=== PATIENT | male | born 1955 | race Caucasian/White ===

== ENCOUNTER 2017-09-16 08:46 | Inpatient (IN) | payer BC ==
[2017-09-16 09:15] LABS: ADD MAN DIFF? NO
[2017-09-16 09:22] LABS: ABNORMAL IP MESSAGE 1; BASOPHIL # 0.1 10^3/ul (0.0-0.1); BASOPHILS % 0.3 % (0.0-2.0); HEMATOCRIT 37.9 % (42.0-52.0); HEMOGLOBIN 12.2 g/dl (14.0-18.0); LYMPHOCYTES # 0.9 10^3/ul (0.8-2.9); LYMPHOCYTES % 3.6 % (15.0-51.0); MEAN CORPUSCULAR HEMOGLOBIN 26.9 pg (29.0-33.0); MEAN CORPUSCULAR HGB CONC 32.2 g/dl (32.0-37.0); MEAN CORPUSCULAR VOLUME 83.5 fl (82.0-101.0); MEAN PLATELET VOLUME 10.1 fl (7.4-10.4); MONOCYTE # 1.8 10^3/ul (0.3-0.9); MONOCYTES % 6.9 % (0.0-11.0); NEUTROPHIL # 22.4 10^3/ul (1.6-7.5); NEUTROPHILS % 88.1 % (39.0-77.0); PLATELET COUNT 258 10^3/UL (140-415); POSITIVE DIFF @See below; RED BLOOD COUNT 4.54 10^6/ul (4.70-6.10); RED CELL DISTRIBUTION WIDTH 14.5 % (11.5-14.5)
[2017-09-16 09:22] LABS: WHITE BLOOD COUNT 25.5 10^3/ul (4.8-10.8)
[2017-09-16] MEDS ORDERED: ONDANSETRON 4 MG INJ IV (09:30)
[2017-09-16] MEDS ORDERED: ACETAMINOPHEN 325 MG TAB PO (09:30)
[2017-09-16 09:32] LABS: INR 1.13; PROTIME 14.7 Sec (11.9-14.9); PT RATIO 1.1
[2017-09-16 09:33] LABS: PARTIAL THROMBOPLASTIN TIME 34.7 Sec (25.0-35.0)
[2017-09-16 09:41] LABS: ALANINE AMINOTRANSFERASE 28 IU/L (13-69); ALBUMIN 3.1 g/dl (3.3-4.9); ALBUMIN/GLOBULIN RATIO 0.77; ALKALINE PHOSPHATASE 80 IU/L (42-121); ANION GAP 12 (8-16); ASPARTATE AMINO TRANSFERASE 18 IU/L (15-46); BILIRUBIN,INDIRECT 0.5 mg/dl (0-1.1); BILIRUBIN,TOTAL 0.5 mg/dl (0.2-1.3); BLOOD UREA NITROGEN 16 mg/dl (7-20); CALCIUM 8.7 mg/dl (8.4-10.2); CARBON DIOXIDE 21 mmol/L (21-31); CHLORIDE 105 mmol/L (97-110); CREATININE 0.97 mg/dl (0.61-1.24); GLUCOSE 121 mg/dl (70-220); POTASSIUM 3.6 mmol/L (3.5-5.1); SODIUM 134 mmol/L (135-144); TOTAL PROTEIN 7.1 g/dl (6.1-8.1)
[2017-09-16 09:58] LABS: TROPONIN-I < 0.012 ng/ml (0.00-0.12)
[2017-09-16 11:21] LABS: LACTIC ACID 0.9 mmol/L (0.5-2.0)
[2017-09-16 11:21] LABS: ADD UMIC YES; UR AMORPHOUS CRYSTAL FEW /HPF (NONE SEEN); UR ASCORBIC ACID 20 mg/dL (NEGATIVE); UR BACTERIA FEW /HPF (NONE SEEN); UR BILIRUBIN (Dip) NEGATIVE (NEGATIVE); UR BLOOD (Dip) 1+ mg/dL (NEGATIVE); UR CLARITY SLIGHTLY CLOUDY (CLEAR); UR COLOR YELLOW (YELLOW); UR GLUCOSE (Dip) NEGATIVE (NEGATIVE); UR KETONES (Dip) NEGATIVE (NEGATIVE); UR LEUKOCYTE ESTERASE (Dip) NEGATIVE Leu/ul (NEGATIVE); UR NITRITE (Dip) NEGATIVE (NEGATIVE); UR RBC 3 /HPF (0-5); UR SPECIFIC GRAVITY (Dip) 1.013 (1.003-1.030); UR TOTAL PROTEIN (Dip) 1+ mg/dl (NEGATIVE); UR UROBILINOGEN (Dip) 2+ mg/dL (NEGATIVE); UR WBC 2 /HPF (0-5)
[2017-09-16] MEDS: morphine 4 MG/ML VIAL IV (13:06)
[2017-09-16] MEDS: ONDANSETRON 4 MG INJ IV (13:06)
[2017-09-16 13:13] LABS: ANISOCYTOSIS 2+ (0-0); BAND NEUTROPHILS #M 2.5 10^3/ul (0.0-0.6); BAND NEUTROPHILS % (M) 10 % (0-4); BURR CELLS 1+ (0-0); GIANT THROMBO% (M) 1 % (0-0); MONOCYTES % (M) 4 % (0-11); MYELOCYTES #M 0.2 10^3/ul (0.0-0.0); MYELOCYTES % (M) 1 % (0-0); PLATELET ESTIMATE NORMAL; POIKILOCYTOSIS 1+ (0-0); POLYCHROMASIA 1+ (0-0); PROMYELOCYTES #M 0.2 10^3/ul (0-0); PROMYELOCYTES % (M) 1 % (0-0); REACTIVE LYMPHOCYTES #M 0.2 10^3/ul (0.0-0.0); REACTIVE LYMPHOCYTES% (M) 1 % (0-0); SEG NEUT #M 21.5 10^3/ul (1.7-7.5); SEGMENTED NEUTROPHILS (M) % 82 % (39-77); SMUDGE%M 3 % (0-0)
[2017-09-16] MEDS: SOD CHLORIDE 0.9% 100 ML (15:23)
[2017-09-16] MEDS: IOHEXOL 300MG/ML 150 ML BTL (15:23)
[2017-09-16 16:24] LABS: LACTIC ACID 1.8 mmol/L (0.5-2.0)
[2017-09-16] MEDS ORDERED: GUAIFENESIN/DM 5ML CUP PO (17:00)
[2017-09-16] MEDS ORDERED: HYDROCODONE/APAP (5/325) TAB PO (17:00)
[2017-09-17 07:27] LABS: ADD MAN DIFF? NO
[2017-09-17] MEDS: HYDROCODONE/APAP (5/325) TAB PO ×2 (07:27→16:58)
[2017-09-17 07:35] LABS: BASOPHIL # 0.1 10^3/ul (0.0-0.1); BASOPHILS % 0.4 % (0.0-2.0); EOSINOPHILS # 0.2 10^3/ul (0.0-0.5); EOSINOPHILS % 1.2 % (0.0-7.0); HEMATOCRIT 37.1 % (42.0-52.0); HEMOGLOBIN 12.3 g/dl (14.0-18.0); LYMPHOCYTES # 1.3 10^3/ul (0.8-2.9); LYMPHOCYTES % 9.5 % (15.0-51.0); MEAN CORPUSCULAR HEMOGLOBIN 27.4 pg (29.0-33.0); MEAN CORPUSCULAR HGB CONC 33.2 g/dl (32.0-37.0); MEAN CORPUSCULAR VOLUME 82.6 fl (82.0-101.0); MEAN PLATELET VOLUME 10.1 fl (7.4-10.4); MONOCYTE # 1.2 10^3/ul (0.3-0.9); NEUTROPHIL # 10.5 10^3/ul (1.6-7.5); NEUTROPHILS % 79.1 % (39.0-77.0); PLATELET COUNT 281 10^3/UL (140-415); RED BLOOD COUNT 4.49 10^6/ul (4.70-6.10); RED CELL DISTRIBUTION WIDTH 14.7 % (11.5-14.5)
[2017-09-17 07:35] LABS: WHITE BLOOD COUNT 13.2 10^3/ul (4.8-10.8)
[2017-09-17 07:52] LABS: ANION GAP 14 (8-16); BLOOD UREA NITROGEN 17 mg/dl (7-20); CARBON DIOXIDE 23 mmol/L (21-31); CHLORIDE 105 mmol/L (97-110); CREATININE 0.88 mg/dl (0.61-1.24); GLUCOSE 109 mg/dl (70-220); POTASSIUM 3.6 mmol/L (3.5-5.1); SODIUM 138 mmol/L (135-144)
[2017-09-17] MEDS: CEFTRIAXONE 1 GM/50 ML (PMX) 50 ML IVPB (10:58)
[2017-09-17] MEDS: METOPROLOL 25 MG TAB PO ×2 (10:59→20:37)
[2017-09-17] MEDS: AZITHROMYCIN 500MG/NS (PMX) 250 ML IVPB (11:57)
[2017-09-17] MEDS: CLOTRIMAZOLE 1% 30 ML TOPICAL SOLN TOP ×2 (13:30→21:43)
[2017-09-17 15:53] LABS: IRON 41 ug/dl (35-150)
[2017-09-17 15:54] LABS: CHOL/HDL RATIO 7.4 RATIO; CHOLESTEROL 104 mg/dl (100-200); HDL CHOLESTEROL 14 mg/dl (30-78); LDL CHOLESTEROL,CALCULATED 56 mg/dl; MAGNESIUM 2.3 mg/dl (1.7-2.5); TRIGLYCERIDES 172 mg/dl (0-149)
[2017-09-17 15:54] LABS: PHOSPHORUS 2.7 mg/dl (2.5-4.9)
[2017-09-17 16:03] LABS: % IRON SATURATION 18 % SAT (22-52); TOTAL IRON BINDING CAPACITY 225 ug/dl (241-421)
[2017-09-17] MEDS: GUAIFENESIN/DM 5ML CUP PO (20:38)
[2017-09-17] MEDS: morphine 2 MG INJ IV (20:39)
[2017-09-17 21:41] LABS: HEMOGLOBIN A1C 5.9 % (0-5.9)
[2017-09-18] MEDS: morphine 2 MG INJ IV (01:41)
[2017-09-18] MEDS: GUAIFENESIN/DM 5ML CUP PO ×3 (02:46→17:54)
[2017-09-18 06:23] LABS: ADD MAN DIFF? NO
[2017-09-18 06:32] LABS: WHITE BLOOD COUNT 8.7 10^3/ul (4.8-10.8)
[2017-09-18 06:32] LABS: BASOPHIL # 0.1 10^3/ul (0.0-0.1); BASOPHILS % 0.7 % (0.0-2.0); EOSINOPHILS # 0.8 10^3/ul (0.0-0.5); EOSINOPHILS % 8.7 % (0.0-7.0); HEMATOCRIT 37.5 % (42.0-52.0); HEMOGLOBIN 12.2 g/dl (14.0-18.0); LYMPHOCYTES # 1.7 10^3/ul (0.8-2.9); LYMPHOCYTES % 19.2 % (15.0-51.0); MEAN CORPUSCULAR HEMOGLOBIN 26.9 pg (29.0-33.0); MEAN CORPUSCULAR HGB CONC 32.5 g/dl (32.0-37.0); MEAN CORPUSCULAR VOLUME 82.8 fl (82.0-101.0); MEAN PLATELET VOLUME 9.9 fl (7.4-10.4); MONOCYTE # 0.9 10^3/ul (0.3-0.9); MONOCYTES % 10.7 % (0.0-11.0); NEUTROPHIL # 5.2 10^3/ul (1.6-7.5); NEUTROPHILS % 59.9 % (39.0-77.0); PLATELET COUNT 319 10^3/UL (140-415); RED BLOOD COUNT 4.53 10^6/ul (4.70-6.10); RED CELL DISTRIBUTION WIDTH 14.6 % (11.5-14.5)
[2017-09-18 07:05] LABS: ANION GAP 12 (8-16); BLOOD UREA NITROGEN 16 mg/dl (7-20); CALCIUM 8.9 mg/dl (8.4-10.2); CARBON DIOXIDE 27 mmol/L (21-31); CHLORIDE 104 mmol/L (97-110); CREATININE 0.87 mg/dl (0.61-1.24); GLUCOSE 107 mg/dl (70-220); POTASSIUM 3.3 mmol/L (3.5-5.1); SODIUM 140 mmol/L (135-144)
[2017-09-18] MEDS: METOPROLOL 25 MG TAB PO (08:25)
[2017-09-18] MEDS: CLOTRIMAZOLE 1% 30 ML TOPICAL SOLN TOP ×2 (08:26→20:17)
[2017-09-18] MEDS ORDERED: NON-FORMULARY/PATIENT OWN MED (Losartan-Hydrochlorothiazide (Losartan-HCTZ) 1 TAB) PO (09:00)
[2017-09-18] MEDS: CEFTRIAXONE 1 GM/50 ML (PMX) 50 ML IVPB (10:08)
[2017-09-18] MEDS: HYDROCODONE/APAP (5/325) TAB PO ×2 (10:25→20:16)
[2017-09-18] MEDS: AZITHROMYCIN 500MG/NS (PMX) 250 ML IVPB (12:25)
[2017-09-18] MEDS ORDERED: hydrALAzine 20 MG INJ IV (14:00)
[2017-09-18] MEDS: POTASSIUM CHLORIDE (SR) 20 MEQ TAB PO (14:38)
[2017-09-18] MEDS ORDERED: morphine LIQ (10 MG/5 ML) CUP PO (15:00)
[2017-09-18] MEDS: IBUPROFEN 600 MG TAB PO ×2 (17:53→23:31)
[2017-09-18] MEDS: METOPROLOL 50 MG TAB PO (20:16)
[2017-09-19] MEDS: IBUPROFEN 600 MG TAB PO ×2 (05:19→12:56)
[2017-09-19 05:58] LABS: ADD MAN DIFF? NO
[2017-09-19 06:09] LABS: BASOPHIL # 0.1 10^3/ul (0.0-0.1); EOSINOPHILS # 1.6 10^3/ul (0.0-0.5); EOSINOPHILS % 14.4 % (0.0-7.0); HEMOGLOBIN 12.6 g/dl (14.0-18.0); LYMPHOCYTES # 1.8 10^3/ul (0.8-2.9); LYMPHOCYTES % 16.3 % (15.0-51.0); MEAN CORPUSCULAR HEMOGLOBIN 27.2 pg (29.0-33.0); MEAN CORPUSCULAR HGB CONC 32.3 g/dl (32.0-37.0); MEAN CORPUSCULAR VOLUME 84.1 fl (82.0-101.0); MEAN PLATELET VOLUME 10.1 fl (7.4-10.4); MONOCYTE # 1.2 10^3/ul (0.3-0.9); MONOCYTES % 10.5 % (0.0-11.0); NEUTROPHIL # 6.1 10^3/ul (1.6-7.5); NEUTROPHILS % 55.5 % (39.0-77.0); PLATELET COUNT 337 10^3/UL (140-415); RED BLOOD COUNT 4.64 10^6/ul (4.70-6.10); RED CELL DISTRIBUTION WIDTH 14.6 % (11.5-14.5)
[2017-09-19 06:56] LABS: ANION GAP 14 (8-16); BLOOD UREA NITROGEN 16 mg/dl (7-20); CALCIUM 9.4 mg/dl (8.4-10.2); CARBON DIOXIDE 26 mmol/L (21-31); CHLORIDE 107 mmol/L (97-110); CREATININE 0.89 mg/dl (0.61-1.24); GLUCOSE 97 mg/dl (70-220); POTASSIUM 3.5 mmol/L (3.5-5.1); SODIUM 143 mmol/L (135-144)
[2017-09-19] MEDS: CLOTRIMAZOLE 1% 30 ML TOPICAL SOLN TOP (08:56)
[2017-09-19] MEDS: CEFTRIAXONE 1 GM/50 ML (PMX) 50 ML IVPB (08:57)
[2017-09-19] MEDS: METOPROLOL 50 MG TAB PO (08:57)
[2017-09-19] MEDS: HYDROCODONE/APAP (5/325) TAB PO (09:05)
[2017-09-19] MEDS: GUAIFENESIN/DM 5ML CUP PO (11:23)
[2017-09-19] MEDS: AZITHROMYCIN 500MG/NS (PMX) 250 ML IVPB (12:56)
== END 2017-09-19 15:15 | disposition home or self-care (01) | DRG 871 ==
LOC: E/R 08:46 → MS2 09:28
DX: A41.9 Sepsis, unspecified organism (principal); J18.9 Pneumonia, unspecified organism; C62.90 Malignant neoplasm of unspecified testis, unspecified whether descended or undescended; I10 Essential (primary) hypertension; D63.8 Anemia in other chronic diseases classified elsewhere; N39.0 Urinary tract infection, site not specified; R65.20 Severe sepsis without septic shock; D50.9 Iron deficiency anemia, unspecified; Y95 Nosocomial condition
CPT/HCPCS: 36415; 71045; 71260; 73110-LT; 74176; 76870; 80048; 80053; 80061; 81001; 83036; 83540; 83605; 83735; 84100; 84484; 85025; 85610; 85730; 87040; 87086; 93005; 93306; 96374; 96375; 99291-25

== ENCOUNTER 2017-10-16 10:39 | Day surgery (SDC) | payer BC ==
[2017-10-16] MEDS: BUPIVACAINE 0.25% (MPF) 30 ML INJ
[~2017-10-16 10:39] MED LIST: CEFAZOLIN 1 GM INJ; ROCURONIUM 50 MG INJ
[2017-10-16 11:46] LABS: ADD MAN DIFF? NO
[2017-10-16 11:48] LABS: WHITE BLOOD COUNT 11.1 10^3/ul (4.8-10.8)
[2017-10-16 11:48] LABS: BASOPHIL # 0.1 10^3/ul (0.0-0.1); BASOPHILS % 0.8 % (0.0-2.0); EOSINOPHILS # 0.9 10^3/ul (0.0-0.5); EOSINOPHILS % 7.9 % (0.0-7.0); HEMATOCRIT 44.5 % (42.0-52.0); HEMOGLOBIN 14.4 g/dl (14.0-18.0); LYMPHOCYTES % 18.3 % (15.0-51.0); MEAN CORPUSCULAR HEMOGLOBIN 27.4 pg (29.0-33.0); MEAN CORPUSCULAR HGB CONC 32.4 g/dl (32.0-37.0); MEAN CORPUSCULAR VOLUME 84.6 fl (82.0-101.0); MEAN PLATELET VOLUME 9.9 fl (7.4-10.4); MONOCYTE # 1.1 10^3/ul (0.3-0.9); MONOCYTES % 9.8 % (0.0-11.0); NEUTROPHIL # 6.9 10^3/ul (1.6-7.5); NEUTROPHILS % 62.4 % (39.0-77.0); PLATELET COUNT 257 10^3/UL (140-415); RED BLOOD COUNT 5.26 10^6/ul (4.70-6.10); RED CELL DISTRIBUTION WIDTH 15.8 % (11.5-14.5)
[2017-10-16 12:13] LABS: ALANINE AMINOTRANSFERASE 30 IU/L (13-69); ALBUMIN 4.4 g/dl (3.3-4.9); ALBUMIN/GLOBULIN RATIO 1.07; ALKALINE PHOSPHATASE 92 IU/L (42-121); ANION GAP 15 (8-16); ASPARTATE AMINO TRANSFERASE 21 IU/L (15-46); BILIRUBIN,INDIRECT 0.1 mg/dl (0-1.1); BILIRUBIN,TOTAL 0.1 mg/dl (0.2-1.3); CARBON DIOXIDE 25 mmol/L (21-31); CHLORIDE 103 mmol/L (97-110); GLUCOSE 94 mg/dl (70-220); TOTAL PROTEIN 8.5 g/dl (6.1-8.1)
[2017-10-16 12:16] LABS: BLOOD UREA NITROGEN 18 mg/dl (7-20); CALCIUM 9.7 mg/dl (8.4-10.2); CREATININE 1.15 mg/dl (0.61-1.24); POTASSIUM 4.4 mmol/L (3.5-5.1); SODIUM 139 mmol/L (135-144)
[2017-10-16] MEDS ORDERED: ROCURONIUM 50 MG INJ (12:25)
[2017-10-16] MEDS ORDERED: PROPOFOL 20 ML (12:25)
[2017-10-16] MEDS ORDERED: MIDAZOLAM 1 MG/ML 2 ML INJ (12:25)
[2017-10-16 12:26] LABS: INR 0.98; PROTIME 13.1 Sec (11.9-14.9)
[2017-10-16 12:29] LABS: PARTIAL THROMBOPLASTIN TIME 38.4 Sec (25.0-35.0)
[2017-10-16] MEDS ORDERED: ROPIVACAINE 0.5 % 30 ML VIAL (13:42)
[2017-10-16] MEDS ORDERED: KETOROLAC 30 MG INJ (13:45)
[2017-10-16] MEDS ORDERED: DEXAMETHASONE 4 MG/ML 1 ML INJ (13:45)
[2017-10-16] MEDS ORDERED: ONDANSETRON 4 MG INJ (13:45)
[2017-10-16] MEDS ORDERED: METOCLOPRAMIDE 10 MG INJ (13:45)
[2017-10-16] MEDS ORDERED: ACETAMINOPHEN 1000MG/100ML IV 100 ML (13:49)
[2017-10-16] MEDS ORDERED: SUGAMMADEX SODIUM 200 MG/2 ML VIAL IV (13:56)
[2017-10-16] MEDS ORDERED: MEPERIDINE 100 MG INJ (13:57)
[2017-10-16] MEDS ORDERED: hydrALAzine 20 MG INJ IV (14:00)
[2017-10-16] MEDS ORDERED: MEPERIDINE 25 MG INJ IV (14:00)
[2017-10-16] MEDS ORDERED: OXYCODONE/ACETAMINOPHEN (5/325) TAB PO (14:00)
[2017-10-16] MEDS ORDERED: METOCLOPRAMIDE 10 MG INJ IV (14:00)
[2017-10-16] MEDS ORDERED: ONDANSETRON 4 MG INJ IV (14:00)
[2017-10-16] MEDS ORDERED: DIPHENHYDRAMINE 50 MG INJ IV (14:00)
[2017-10-16] MEDS ORDERED: LABETALOL HCL 20MG INJ IV (14:00)
[2017-10-16] MEDS ORDERED: EPHEDrine SULFATE 50 MG/5 ML SYG IV (14:00)
[2017-10-16] MEDS ORDERED: FENTAnyl 50 MCG/ML VIAL IV ×3 (14:00)
[2017-10-16] MEDS ORDERED: HYDROmorphONE (0.2 MG/ML) 10ML SYG IV ×3 (14:00)
[2017-10-16] MEDS ORDERED: HYDROCODONE/APAP (5/325) TAB PO (14:30)
[2017-10-16] MEDS: OXYCODONE/ACETAMINOPHEN (5/325) TAB PO (15:35)
== END 2017-10-16 16:40 | disposition home or self-care (01) ==
LOC: SDS 10:39
DX: C62.91 Malignant neoplasm of right testis, unspecified whether descended or undescended (principal); I10 Essential (primary) hypertension; Z87.891 Personal history of nicotine dependence
CPT/HCPCS: 54530; 80053; 85025; 85610; 85730; 87086; 88309; 88331; 88341; 88342

== ENCOUNTER → 2017-11-26 | Outpatient (CLI) | payer BC ==
[~2017-11-26] MED LIST changes: +ALBUTEROL 0.083% (NEB) 2.5 MG/3 ML AMP; -CEFAZOLIN 1 GM INJ; -ROCURONIUM 50 MG INJ
== END | disposition home or self-care (01) ==
LOC: PUL 11:05
DX: C62.11 Malignant neoplasm of descended right testis (principal)
CPT/HCPCS: 94060; 94726; 94729

== ENCOUNTER 2018-03-22 13:58 | Inpatient (IN) | payer BC ==
[2018-03-22] MEDS: KETOROLAC 30 MG INJ IM (15:48)
[2018-03-22 15:56] LABS: ABNORMAL IP MESSAGE 1; HEMATOCRIT 44.1 % (42.0-52.0); HEMOGLOBIN 14.3 g/dl (14.0-18.0); MEAN CORPUSCULAR HEMOGLOBIN 27.9 pg (29.0-33.0); MEAN CORPUSCULAR HGB CONC 32.4 g/dl (32.0-37.0); MEAN CORPUSCULAR VOLUME 86.1 fl (82.0-101.0); MEAN PLATELET VOLUME 9.6 fl (7.4-10.4); PLATELET COUNT 238 10^3/UL (140-415); POSITIVE DIFF @See below; RED BLOOD COUNT 5.12 10^6/ul (4.70-6.10); RED CELL DISTRIBUTION WIDTH 13.9 % (11.5-14.5)
[2018-03-22 16:08] LABS: ADD MAN DIFF? YES
[2018-03-22 16:17] LABS: ANION GAP 11 (8-16); BLOOD UREA NITROGEN 14 mg/dl (7-20); CALCIUM 9.2 mg/dl (8.4-10.2); CARBON DIOXIDE 27 mmol/L (21-31); CHLORIDE 101 mmol/L (97-110); GLUCOSE 89 mg/dl (70-220); POTASSIUM 4.1 mmol/L (3.5-5.1); SODIUM 135 mmol/L (135-144)
[2018-03-22 16:36] LABS: ANISOCYTOSIS 1+ (0-0); BAND NEUTROPHILS #M 0.7 10^3/ul (0.0-0.6); BAND NEUTROPHILS % (M) 12 % (0-4); EOSINOPHILS % (M) 1 % (0-7); GIANT THROMBO% (M) 1 % (0-0); LYMPHOCYTES #M 1.3 10^3/ul (0.8-2.9); LYMPHOCYTES % (M) 22 % (15-51); METAMYELOCYTES #M 0.2 10^3/ul (0.0-0.0); METAMYELOCYTES %M 4 % (0-0); MICROCYTOSIS 1+ (0-0); MONOCYTES % (M) 17 % (0-11); MYELOCYTES #M 0.2 10^3/ul (0.0-0.0); MYELOCYTES % (M) 4 % (0-0); PLATELET ESTIMATE NORMAL; POIKILOCYTOSIS 1+ (0-0); REACTIVE LYMPHOCYTES% (M) 1 % (0-0); SEG NEUT #M 2.3 10^3/ul (1.6-7.5); SEGMENTED NEUTROPHILS (M) % 38 % (39-77); SMUDGE%M 42 % (0-0)
[2018-03-22] MEDS: ACETAMINOPHEN 325 MG TAB PO (19:23)
[2018-03-22] MEDS: IODIXANOL LOCM 100 ML BTL (19:37)
[2018-03-22] MEDS: SOD CHLORIDE 0.9% 100 ML (19:37)
[2018-03-22 21:03] LABS: B-TYPE NATRIURETIC PEPTIDE 328 PG/ML (0-125)
[2018-03-22 21:03] LABS: TROPONIN-I < 0.010 ng/ml (0.000-0.120)
[2018-03-22] MEDS: HEPARIN 1000 UNITS/ML 10 ML INJ IV (21:48)
[2018-03-22] MEDS: HEPARIN 25000 UNITS/250 ML 250 ML IV (21:52)
[2018-03-23] MEDS ORDERED: HEPARIN 1000 UNITS/ML 10 ML INJ IV ×3 (02:00)
[2018-03-23 02:24] LABS: ABNORMAL IP MESSAGE 1; HEMOGLOBIN 13.6 g/dl (14.0-18.0); MEAN CORPUSCULAR HEMOGLOBIN 28.4 pg (29.0-33.0); MEAN CORPUSCULAR HGB CONC 33.2 g/dl (32.0-37.0); MEAN CORPUSCULAR VOLUME 85.6 fl (82.0-101.0); MEAN PLATELET VOLUME 9.9 fl (7.4-10.4); PLATELET COUNT 222 10^3/UL (140-415); POSITIVE DIFF @See below; RED BLOOD COUNT 4.79 10^6/ul (4.70-6.10); RED CELL DISTRIBUTION WIDTH 14.3 % (11.5-14.5)
[2018-03-23 02:24] LABS: WHITE BLOOD COUNT 6.1 10^3/ul (4.8-10.8)
[2018-03-23] MEDS: HYDROCODONE/APAP (5/325) TAB PO (02:29)
[2018-03-23 02:32] LABS: ADD MAN DIFF? YES
[2018-03-23 02:44] LABS: INR 1.01; PROTIME 13.4 Sec (11.9-14.9)
[2018-03-23 04:58] LABS: ANISOCYTOSIS 2+ (0-0); BAND NEUTROPHILS #M 0.4 10^3/ul (0.0-0.6); BAND NEUTROPHILS % (M) 7 % (0-4); EOSINOPHILS % (M) 1 % (0-7); LYMPHOCYTES #M 1.2 10^3/ul (0.8-2.9); LYMPHOCYTES % (M) 21 % (15-51); METAMYELOCYTES #M 0.4 10^3/ul (0.0-0.0); METAMYELOCYTES %M 8 % (0-0); MICROCYTOSIS 1+ (0-0); MONOCYTE #M 1.1 10^3/ul (0.3-0.9); MONOCYTES % (M) 19 % (0-11); MYELOCYTES #M 0.3 10^3/ul (0.0-0.0); MYELOCYTES % (M) 5 % (0-0); PLATELET ESTIMATE NORMAL; POLYCHROMASIA 3+ (0-0); REACTIVE LYMPHOCYTES% (M) 1 % (0-0); SEG NEUT #M 2.3 10^3/ul (1.6-7.5); SEGMENTED NEUTROPHILS (M) % 38 % (39-77); SMUDGE%M 5 % (0-0)
[2018-03-23 06:19] LABS: WHITE BLOOD COUNT 5.9 10^3/ul (4.8-10.8)
[2018-03-23 06:19] LABS: ABNORMAL IP MESSAGE 1; HEMOGLOBIN 13.6 g/dl (14.0-18.0); MEAN CORPUSCULAR HEMOGLOBIN 27.9 pg (29.0-33.0); MEAN CORPUSCULAR HGB CONC 33.2 g/dl (32.0-37.0); MEAN CORPUSCULAR VOLUME 84.2 fl (82.0-101.0); MEAN PLATELET VOLUME 10.3 fl (7.4-10.4); PLATELET COUNT 248 10^3/UL (140-415); POSITIVE DIFF @See below; RED BLOOD COUNT 4.87 10^6/ul (4.70-6.10); RED CELL DISTRIBUTION WIDTH 14.2 % (11.5-14.5)
[2018-03-23 06:24] LABS: ADD MAN DIFF? YES
[2018-03-23 06:44] LABS: ALANINE AMINOTRANSFERASE 15 IU/L (13-69); ALBUMIN 3.1 g/dl (3.3-4.9); ALBUMIN/GLOBULIN RATIO 0.96; ALKALINE PHOSPHATASE 48 IU/L (42-121); ANION GAP 9 (8-16); ASPARTATE AMINO TRANSFERASE 15 IU/L (15-46); BILIRUBIN,INDIRECT 0.2 mg/dl (0-1.1); BILIRUBIN,TOTAL 0.2 mg/dl (0.2-1.3); BLOOD UREA NITROGEN 15 mg/dl (7-20); CALCIUM 8.7 mg/dl (8.4-10.2); CARBON DIOXIDE 25 mmol/L (21-31); CHLORIDE 107 mmol/L (97-110); CREATININE 1.02 mg/dl (0.61-1.24); GLUCOSE 108 mg/dl (70-220); MAGNESIUM 2.1 mg/dl (1.7-2.5); PHOSPHORUS 3.5 mg/dl (2.5-4.9); POTASSIUM 3.5 mmol/L (3.5-5.1); SODIUM 137 mmol/L (135-144); TOTAL PROTEIN 6.3 g/dl (6.1-8.1)
[2018-03-23 09:05] LABS: PARTIAL THROMBOPLASTIN TIME 84.2 Sec (25.0-35.0)
[2018-03-23] MEDS: HYDROCODONE/APAP (10/325) TAB PO ×2 (09:16→18:29)
[2018-03-23] MEDS: HEPARIN 25000 UNITS/250 ML 250 ML IV (09:18)
[2018-03-23 09:37] LABS: ANISOCYTOSIS 1+ (0-0); BAND NEUTROPHILS #M 0.1 10^3/ul (0.0-0.6); BAND NEUTROPHILS % (M) 3 % (0-4); BASOPHILS % (M) 1 % (0-2); BURR CELLS 1+ (0-0); EOSINOPHILS % (M) 2 % (0-7); GIANT THROMBO% (M) 1 % (0-0); LYMPHOCYTES #M 1.5 10^3/ul (0.8-2.9); LYMPHOCYTES % (M) 27 % (15-51); METAMYELOCYTES #M 0.1 10^3/ul (0.0-0.0); METAMYELOCYTES %M 3 % (0-0); MICROCYTOSIS 1+ (0-0); MONOCYTE #M 1.1 10^3/ul (0.3-0.9); MONOCYTES % (M) 20 % (0-11); MYELOCYTES #M 0.5 10^3/ul (0.0-0.0); MYELOCYTES % (M) 9 % (0-0); PLATELET ESTIMATE NORMAL; POLYCHROMASIA 1+ (0-0); REACTIVE LYMPHOCYTES #M 0.2 10^3/ul (0.0-0.0); REACTIVE LYMPHOCYTES% (M) 5 % (0-0); SEG NEUT #M 1.8 10^3/ul (1.6-7.5); SEGMENTED NEUTROPHILS (M) % 30 % (39-77); SMUDGE%M 7 % (0-0)
[2018-03-23] MEDS: METOPROLOL 50 MG TAB PO ×2 (14:29→20:53)
[2018-03-23 14:51] LABS: ADD UMIC YES; UR ASCORBIC ACID NEGATIVE (NEGATIVE); UR BILIRUBIN (Dip) NEGATIVE (NEGATIVE); UR BLOOD (Dip) NEGATIVE (NEGATIVE); UR CLARITY CLEAR (CLEAR); UR COLOR YELLOW (YELLOW); UR GLUCOSE (Dip) NEGATIVE (NEGATIVE); UR KETONES (Dip) NEGATIVE (NEGATIVE); UR LEUKOCYTE ESTERASE (Dip) NEGATIVE Leu/ul (NEGATIVE); UR MUCUS FEW /HPF (NONE SEEN); UR NITRITE (Dip) NEGATIVE (NEGATIVE); UR RBC 0 /HPF (0-5); UR SPECIFIC GRAVITY (Dip) 1.035 (1.003-1.030); UR TOTAL PROTEIN (Dip) 1+ mg/dl (NEGATIVE); UR UROBILINOGEN (Dip) 2+ mg/dL (NEGATIVE); UR WBC 1 /HPF (0-5)
[2018-03-23 15:25] LABS: PARTIAL THROMBOPLASTIN TIME 72.2 Sec (25.0-35.0)
[2018-03-24] MEDS: HYDROCODONE/APAP (10/325) TAB PO ×4 (00:53→21:02)
[2018-03-24] MEDS: HEPARIN 25000 UNITS/250 ML 250 ML IV ×3 (03:39→15:12)
[2018-03-24 06:38] LABS: ABNORMAL IP MESSAGE 1; HEMATOCRIT 41.8 % (42.0-52.0); HEMOGLOBIN 13.5 g/dl (14.0-18.0); MEAN CORPUSCULAR HEMOGLOBIN 28.3 pg (29.0-33.0); MEAN CORPUSCULAR HGB CONC 32.3 g/dl (32.0-37.0); MEAN CORPUSCULAR VOLUME 87.6 fl (82.0-101.0); MEAN PLATELET VOLUME 10.4 fl (7.4-10.4); PLATELET COUNT 321 10^3/UL (140-415); POSITIVE DIFF @See below; RED BLOOD COUNT 4.77 10^6/ul (4.70-6.10); RED CELL DISTRIBUTION WIDTH 14.2 % (11.5-14.5)
[2018-03-24 06:38] LABS: WHITE BLOOD COUNT 10.4 10^3/ul (4.8-10.8)
[2018-03-24 06:51] LABS: ADD MAN DIFF? YES
[2018-03-24 07:05] LABS: ALANINE AMINOTRANSFERASE 20 IU/L (13-69); ALBUMIN 3.3 g/dl (3.3-4.9); ALBUMIN/GLOBULIN RATIO 1.06; ALKALINE PHOSPHATASE 51 IU/L (42-121); ANION GAP 12 (8-16); ASPARTATE AMINO TRANSFERASE 16 IU/L (15-46); BILIRUBIN,INDIRECT 0.2 mg/dl (0-1.1); BILIRUBIN,TOTAL 0.2 mg/dl (0.2-1.3); BLOOD UREA NITROGEN 12 mg/dl (7-20); CALCIUM 8.9 mg/dl (8.4-10.2); CARBON DIOXIDE 27 mmol/L (21-31); CHLORIDE 102 mmol/L (97-110); CREATININE 1.04 mg/dl (0.61-1.24); GLUCOSE 102 mg/dl (70-220); POTASSIUM 4.1 mmol/L (3.5-5.1); SODIUM 137 mmol/L (135-144); TOTAL PROTEIN 6.4 g/dl (6.1-8.1)
[2018-03-24 07:13] LABS: PARTIAL THROMBOPLASTIN TIME 66.8 Sec (25.0-35.0)
[2018-03-24] MEDS: METOPROLOL 50 MG TAB PO ×2 (08:21→21:02)
[2018-03-24 09:41] LABS: ANISOCYTOSIS 1+ (0-0); BAND NEUTROPHILS #M 1.4 10^3/ul (0.0-0.6); BAND NEUTROPHILS % (M) 14 % (0-4); GIANT THROMBO% (M) 1 % (0-0); LYMPHOCYTES #M 2.2 10^3/ul (0.8-2.9); LYMPHOCYTES % (M) 22 % (15-51); METAMYELOCYTES #M 0.5 10^3/ul (0.0-0.0); METAMYELOCYTES %M 5 % (0-0); MICROCYTOSIS 1+ (0-0); MONOCYTE #M 1.4 10^3/ul (0.3-0.9); MONOCYTES % (M) 14 % (0-11); MYELOCYTES #M 0.6 10^3/ul (0.0-0.0); MYELOCYTES % (M) 6 % (0-0); PLATELET ESTIMATE NORMAL; POLYCHROMASIA 3+ (0-0); PROMYELOCYTES #M 0.1 10^3/ul (0-0); PROMYELOCYTES % (M) 1 % (0-0); REACTIVE LYMPHOCYTES #M 0.2 10^3/ul (0.0-0.0); REACTIVE LYMPHOCYTES% (M) 2 % (0-0); SEGMENTED NEUTROPHILS (M) % 37 % (39-77); SMUDGE%M 8 % (0-0)
[2018-03-24 14:45] LABS: PARTIAL THROMBOPLASTIN TIME 51.6 Sec (25.0-35.0)
[2018-03-24] MEDS: HEPARIN 1000 UNITS/ML 10 ML INJ IV (15:01)
[2018-03-24 22:12] LABS: PARTIAL THROMBOPLASTIN TIME 93.4 Sec (25.0-35.0)
[2018-03-25 03:37] LABS: PARTIAL THROMBOPLASTIN TIME 88.4 Sec (25.0-35.0)
[2018-03-25] MEDS: HYDROCODONE/APAP (10/325) TAB PO ×3 (03:39→21:53)
[2018-03-25] MEDS: HEPARIN 25000 UNITS/250 ML 250 ML IV (03:55)
[2018-03-25] MEDS: PANTOPRAZOLE (EC) 40 MG TAB PO (07:00)
[2018-03-25] MEDS: METOPROLOL 50 MG TAB PO ×2 (08:10→20:11)
[2018-03-25 10:26] LABS: PARTIAL THROMBOPLASTIN TIME 89.3 Sec (25.0-35.0)
[2018-03-26] MEDS: HEPARIN 25000 UNITS/250 ML 250 ML IV ×2 (04:21→05:52)
[2018-03-26] MEDS: HYDROCODONE/APAP (10/325) TAB PO ×2 (04:26→22:07)
[2018-03-26] MEDS: PANTOPRAZOLE (EC) 40 MG TAB PO (06:59)
[2018-03-26 07:06] LABS: PARTIAL THROMBOPLASTIN TIME 78.2 Sec (25.0-35.0)
[2018-03-26] MEDS: METOPROLOL 50 MG TAB PO ×2 (08:23→22:09)
[2018-03-27] MEDS: HYDROCODONE/APAP (10/325) TAB PO ×3 (02:19→18:34)
[2018-03-27 03:00] LABS: PARTIAL THROMBOPLASTIN TIME 73.4 Sec (25.0-35.0)
[2018-03-27] MEDS: PANTOPRAZOLE (EC) 40 MG TAB PO (05:38)
[2018-03-27] MEDS: HEPARIN 25000 UNITS/250 ML 250 ML IV ×2 (06:17→16:13)
[2018-03-27] MEDS: METOPROLOL 50 MG TAB PO ×2 (08:20→20:59)
[2018-03-27] MEDS: BISACODYL (EC) 5 MG TAB PO (16:10)
[2018-03-27] MEDS: DOCUSATE SODIUM 100 MG CAP PO (20:58)
[2018-03-27] MEDS: ACETAMINOPHEN 325 MG TAB PO (21:01)
[2018-03-28] MEDS: LACTULOSE 30ML CUP PO ×2 (00:07→06:21)
[2018-03-28] MEDS: HYDROCODONE/APAP (10/325) TAB PO ×3 (00:08→18:18)
[2018-03-28] MEDS: PANTOPRAZOLE (EC) 40 MG TAB PO (06:20)
[2018-03-28] MEDS: HEPARIN 25000 UNITS/250 ML 250 ML IV (06:40)
[2018-03-28 07:48] LABS: PARTIAL THROMBOPLASTIN TIME 47.8 Sec (25.0-35.0)
[2018-03-28] MEDS: HEPARIN 1000 UNITS/ML 10 ML INJ IV (08:56)
[2018-03-28] MEDS: DOCUSATE SODIUM 100 MG CAP PO ×2 (09:16→20:47)
[2018-03-28] MEDS: METOPROLOL 50 MG TAB PO ×2 (09:16→20:48)
[2018-03-28] MEDS: APIXABAN 5 MG TABLET PO ×2 (11:26→20:47)
[2018-03-28 16:12] LABS: PARTIAL THROMBOPLASTIN TIME 40.6 Sec (25.0-35.0)
[2018-03-29] MEDS: HYDROCODONE/APAP (10/325) TAB PO ×3 (05:29→21:12)
[2018-03-29] MEDS: PANTOPRAZOLE (EC) 40 MG TAB PO (05:29)
[2018-03-29 09:12] LABS: ABNORMAL IP MESSAGE 1; HEMATOCRIT 44.2 % (42.0-52.0); HEMOGLOBIN 14.1 g/dl (14.0-18.0); MEAN CORPUSCULAR HEMOGLOBIN 28.2 pg (29.0-33.0); MEAN CORPUSCULAR HGB CONC 31.9 g/dl (32.0-37.0); MEAN CORPUSCULAR VOLUME 88.4 fl (82.0-101.0); MEAN PLATELET VOLUME 9.8 fl (7.4-10.4); PLATELET COUNT 428 10^3/UL (140-415); POSITIVE DIFF @See below; RED CELL DISTRIBUTION WIDTH 14.7 % (11.5-14.5)
[2018-03-29 09:12] LABS: WHITE BLOOD COUNT 20.1 10^3/ul (4.8-10.8)
[2018-03-29 09:18] LABS: ADD MAN DIFF? YES
[2018-03-29 09:34] LABS: INR 1.07; PT RATIO 1.1
[2018-03-29 09:35] LABS: PARTIAL THROMBOPLASTIN TIME 37.5 Sec (25.0-35.0)
[2018-03-29 09:46] LABS: ALANINE AMINOTRANSFERASE 24 IU/L (13-69); ALBUMIN 3.5 g/dl (3.3-4.9); ALBUMIN/GLOBULIN RATIO 0.94; ALKALINE PHOSPHATASE 54 IU/L (42-121); ANION GAP 10 (8-16); ASPARTATE AMINO TRANSFERASE 24 IU/L (15-46); BILIRUBIN,INDIRECT 0.2 mg/dl (0-1.1); BILIRUBIN,TOTAL 0.2 mg/dl (0.2-1.3); BLOOD UREA NITROGEN 15 mg/dl (7-20); CALCIUM 9.7 mg/dl (8.4-10.2); CARBON DIOXIDE 28 mmol/L (21-31); CHLORIDE 104 mmol/L (97-110); CREATININE 1.06 mg/dl (0.61-1.24); POTASSIUM 4.8 mmol/L (3.5-5.1); SODIUM 137 mmol/L (135-144); TOTAL PROTEIN 7.2 g/dl (6.1-8.1)
[2018-03-29] MEDS: APIXABAN 5 MG TABLET PO ×2 (09:54→21:11)
[2018-03-29] MEDS: METOPROLOL 50 MG TAB PO ×2 (09:55→21:15)
[2018-03-29] MEDS: DOCUSATE SODIUM 100 MG CAP PO ×2 (09:55→21:11)
[2018-03-29 09:56] LABS: GLUCOSE 98 mg/dl (70-220)
[2018-03-29 10:46] LABS: ANISOCYTOSIS 1+ (0-0); BAND NEUTROPHILS #M 1.8 10^3/ul (0.0-0.6); BAND NEUTROPHILS % (M) 9 % (0-4); LYMPHOCYTES #M 1.2 10^3/ul (0.8-2.9); LYMPHOCYTES % (M) 6 % (15-51); METAMYELOCYTES #M 0.4 10^3/ul (0.0-0.0); METAMYELOCYTES %M 2 % (0-0); MICROCYTOSIS 1+ (0-0); MONOCYTE #M 2.2 10^3/ul (0.3-0.9); MONOCYTES % (M) 11 % (0-11); MYELOCYTES #M 1.4 10^3/ul (0.0-0.0); MYELOCYTES % (M) 7 % (0-0); PLATELET ESTIMATE NORMAL; POLYCHROMASIA 1+ (0-0); REACTIVE LYMPHOCYTES #M 0.4 10^3/ul (0.0-0.0); REACTIVE LYMPHOCYTES% (M) 2 % (0-0); SEGMENTED NEUTROPHILS (M) % 63 % (39-77); SMUDGE%M 5 % (0-0)
[2018-03-29] MEDS: LACTULOSE 30ML CUP PO (11:25)
[2018-03-30] MEDS: HYDROCODONE/APAP (10/325) TAB PO ×4 (02:01→21:25)
[2018-03-30] MEDS: PANTOPRAZOLE (EC) 40 MG TAB PO (06:18)
[2018-03-30 07:50] LABS: ADD MAN DIFF? NO
[2018-03-30 08:03] LABS: WHITE BLOOD COUNT 18.9 10^3/ul (4.8-10.8)
[2018-03-30 08:03] LABS: ABNORMAL IP MESSAGE 1; BASOPHIL # 0.1 10^3/ul (0.0-0.1); BASOPHILS % 0.4 % (0.0-2.0); EOSINOPHILS # 0.1 10^3/ul (0.0-0.5); EOSINOPHILS % 0.3 % (0.0-7.0); HEMOGLOBIN 13.9 g/dl (14.0-18.0); LYMPHOCYTES # 1.8 10^3/ul (0.8-2.9); LYMPHOCYTES % 9.7 % (15.0-51.0); MEAN CORPUSCULAR HGB CONC 32.3 g/dl (32.0-37.0); MEAN CORPUSCULAR VOLUME 86.7 fl (82.0-101.0); MEAN PLATELET VOLUME 10.1 fl (7.4-10.4); MONOCYTE # 2.2 10^3/ul (0.3-0.9); MONOCYTES % 11.9 % (0.0-11.0); NEUTROPHIL # 11.5 10^3/ul (1.6-7.5); NEUTROPHILS % 60.8 % (39.0-77.0); PLATELET COUNT 406 10^3/UL (140-415); POSITIVE DIFF @See below; RED BLOOD COUNT 4.96 10^6/ul (4.70-6.10); RED CELL DISTRIBUTION WIDTH 14.8 % (11.5-14.5)
[2018-03-30 08:23] LABS: ALANINE AMINOTRANSFERASE 24 IU/L (13-69); ALBUMIN 3.7 g/dl (3.3-4.9); ALKALINE PHOSPHATASE 60 IU/L (42-121); ANION GAP 11 (8-16); ASPARTATE AMINO TRANSFERASE 22 IU/L (15-46); BILIRUBIN,INDIRECT 0.2 mg/dl (0-1.1); BILIRUBIN,TOTAL 0.2 mg/dl (0.2-1.3); BLOOD UREA NITROGEN 20 mg/dl (7-20); CALCIUM 9.6 mg/dl (8.4-10.2); CARBON DIOXIDE 27 mmol/L (21-31); CHLORIDE 102 mmol/L (97-110); GLUCOSE 95 mg/dl (70-220); POTASSIUM 4.4 mmol/L (3.5-5.1); SODIUM 136 mmol/L (135-144); TOTAL PROTEIN 7.4 g/dl (6.1-8.1)
[2018-03-30 08:30] LABS: INR 1.01; PROTIME 13.4 Sec (11.9-14.9)
[2018-03-30 08:31] LABS: PARTIAL THROMBOPLASTIN TIME 41.5 Sec (25.0-35.0)
[2018-03-30] MEDS: DOCUSATE SODIUM 100 MG CAP PO ×2 (09:15→20:39)
[2018-03-30] MEDS: METOPROLOL 50 MG TAB PO ×2 (09:15→20:40)
[2018-03-30] MEDS: APIXABAN 5 MG TABLET PO ×2 (09:16→20:40)
[2018-03-30 09:42] LABS: BAND NEUTROPHILS #M 1.8 10^3/ul (0.0-0.6); BAND NEUTROPHILS % (M) 10 % (0-4); GIANT THROMBO% (M) 1 % (0-0); LYMPHOCYTES #M 1.5 10^3/ul (0.8-2.9); LYMPHOCYTES % (M) 8 % (15-51); METAMYELOCYTES #M 0.1 10^3/ul (0.0-0.0); METAMYELOCYTES %M 1 % (0-0); MONOCYTES % (M) 11 % (0-11); MYELOCYTES #M 1.7 10^3/ul (0.0-0.0); MYELOCYTES % (M) 9 % (0-0); PLATELET ESTIMATE NORMAL; POIKILOCYTOSIS 3+ (0-0); PROMYELOCYTES #M 0.3 10^3/ul (0-0); PROMYELOCYTES % (M) 2 % (0-0); REACTIVE LYMPHOCYTES #M 0.1 10^3/ul (0.0-0.0); REACTIVE LYMPHOCYTES% (M) 1 % (0-0); SEG NEUT #M 11.3 10^3/ul (1.6-7.5); SEGMENTED NEUTROPHILS (M) % 58 % (39-77); SMUDGE%M 2 % (0-0)
[2018-03-31] MEDS: HYDROCODONE/APAP (10/325) TAB PO ×5 (02:55→19:58)
[2018-03-31] MEDS: PANTOPRAZOLE (EC) 40 MG TAB PO (06:57)
[2018-03-31] MEDS: METOPROLOL 50 MG TAB PO ×2 (09:36→20:00)
[2018-03-31] MEDS: APIXABAN 5 MG TABLET PO ×2 (09:36→20:00)
[2018-03-31] MEDS: DOCUSATE SODIUM 100 MG CAP PO ×2 (09:36→20:00)
[2018-04-01] MEDS: HYDROCODONE/APAP (10/325) TAB PO ×4 (03:36→20:23)
[2018-04-01] MEDS: PANTOPRAZOLE (EC) 40 MG TAB PO (05:40)
[2018-04-01] MEDS: METOPROLOL 50 MG TAB PO ×2 (09:55→20:22)
[2018-04-01] MEDS: DOCUSATE SODIUM 100 MG CAP PO ×2 (09:56→20:22)
[2018-04-01] MEDS: APIXABAN 5 MG TABLET PO ×2 (09:56→20:22)
[2018-04-01] MEDS ORDERED: VANCOMYCIN IV PER PHARMACY XX (12:00)
[2018-04-01] MEDS: VANCOMYCIN 2 GM in SOD CHLORIDE 0.9% 500 ML IVPB (15:26)
[2018-04-02] MEDS: VANCOMYCIN 1.25 GM in SOD CHLORIDE 0.9% 250 ML IVPB ×2 (01:10→13:48)
[2018-04-02] MEDS: HYDROCODONE/APAP (10/325) TAB PO ×5 (01:13→21:59)
[2018-04-02] MEDS: PANTOPRAZOLE (EC) 40 MG TAB PO (06:23)
[2018-04-02] MEDS: DOCUSATE SODIUM 100 MG CAP PO ×2 (08:34→21:00)
[2018-04-02] MEDS: APIXABAN 5 MG TABLET PO ×2 (08:34→21:00)
[2018-04-02] MEDS: METOPROLOL 50 MG TAB PO ×2 (08:35→21:00)
[2018-04-02 09:09] LABS: BLOOD UREA NITROGEN 18 mg/dl (7-20)
[2018-04-02 09:09] LABS: CREATININE 1.01 mg/dl (0.61-1.24)
[2018-04-02 10:07] LABS: ADD MAN DIFF? NO
[2018-04-02 10:11] LABS: WHITE BLOOD COUNT 15.9 10^3/ul (4.8-10.8)
[2018-04-02 10:11] LABS: ABNORMAL IP MESSAGE 1; BASOPHIL # 0.2 10^3/ul (0.0-0.1); BASOPHILS % 1.5 % (0.0-2.0); EOSINOPHILS % 0.2 % (0.0-7.0); HEMATOCRIT 40.9 % (42.0-52.0); HEMOGLOBIN 12.8 g/dl (14.0-18.0); LYMPHOCYTES % 12.8 % (15.0-51.0); MEAN CORPUSCULAR HEMOGLOBIN 27.4 pg (29.0-33.0); MEAN CORPUSCULAR HGB CONC 31.3 g/dl (32.0-37.0); MEAN CORPUSCULAR VOLUME 87.6 fl (82.0-101.0); MEAN PLATELET VOLUME 10.6 fl (7.4-10.4); MONOCYTE # 2.3 10^3/ul (0.3-0.9); MONOCYTES % 14.3 % (0.0-11.0); NEUTROPHIL # 9.4 10^3/ul (1.6-7.5); NEUTROPHILS % 59.1 % (39.0-77.0); PLATELET COUNT 418 10^3/UL (140-415); POSITIVE DIFF @See below; RED BLOOD COUNT 4.67 10^6/ul (4.70-6.10); RED CELL DISTRIBUTION WIDTH 14.8 % (11.5-14.5)
[2018-04-02 10:26] LABS: ANION GAP 12 (8-16); BLOOD UREA NITROGEN 18 mg/dl (7-20); CALCIUM 9.6 mg/dl (8.4-10.2); CARBON DIOXIDE 27 mmol/L (21-31); CHLORIDE 103 mmol/L (97-110); CREATININE 1.04 mg/dl (0.61-1.24); GLUCOSE 86 mg/dl (70-220); POTASSIUM 4.7 mmol/L (3.5-5.1); SODIUM 137 mmol/L (135-144)
[2018-04-02 11:13] LABS: ANISOCYTOSIS 3+ (0-0); BAND NEUTROPHILS #M 0.6 10^3/ul (0.0-0.6); BAND NEUTROPHILS % (M) 4 % (0-4); GIANT THROMBO% (M) 3 % (0-0); LYMPHOCYTES #M 1.9 10^3/ul (0.8-2.9); LYMPHOCYTES % (M) 12 % (15-51); METAMYELOCYTES #M 0.3 10^3/ul (0.0-0.0); METAMYELOCYTES %M 2 % (0-0); MICROCYTOSIS 3+ (0-0); MONOCYTES % (M) 13 % (0-11); MYELOCYTES #M 0.7 10^3/ul (0.0-0.0); MYELOCYTES % (M) 5 % (0-0); PLATELET ESTIMATE INCREASED; POLYCHROMASIA 1+ (0-0); PROMYELOCYTES #M 0.1 10^3/ul (0-0); PROMYELOCYTES % (M) 1 % (0-0); SEG NEUT #M 10.1 10^3/ul (1.6-7.5); SEGMENTED NEUTROPHILS (M) % 63 % (39-77); SMUDGE%M 3 % (0-0)
[2018-04-03] MEDS: VANCOMYCIN 1.25 GM in SOD CHLORIDE 0.9% 250 ML IVPB (02:02)
[2018-04-03] MEDS: HYDROCODONE/APAP (10/325) TAB PO ×5 (02:02→21:21)
[2018-04-03 02:11] LABS: VANCOMYCIN,TROUGH 16.8 ug/ml (10.0-20.0)
[2018-04-03] MEDS: PANTOPRAZOLE (EC) 40 MG TAB PO (05:31)
[2018-04-03] MEDS: APIXABAN 5 MG TABLET PO ×2 (09:18→21:04)
[2018-04-03] MEDS: DOCUSATE SODIUM 100 MG CAP PO ×2 (09:18→21:04)
[2018-04-03] MEDS: METOPROLOL 50 MG TAB PO ×2 (09:19→21:05)
[2018-04-03] MEDS: VANCOMYCIN 1 GM 250 ML IVPB (14:22)
[2018-04-04] MEDS: VANCOMYCIN 1 GM 250 ML IVPB (01:55)
[2018-04-04] MEDS: PANTOPRAZOLE (EC) 40 MG TAB PO (06:24)
[2018-04-04] MEDS: HYDROCODONE/APAP (10/325) TAB PO (06:26)
[2018-04-04] MEDS: DOCUSATE SODIUM 100 MG CAP PO (08:30)
[2018-04-04] MEDS: METOPROLOL 50 MG TAB PO (08:31)
[2018-04-04] MEDS: APIXABAN 5 MG TABLET PO (08:31)
[2018-04-04] MEDS ORDERED: APIXABAN 5 MG TABLET PO (21:00)
== END 2018-04-04 12:57 | disposition home or self-care (01) | DRG 176 ==
LOC: TEL 22:21 → PP2 04-02 09:29 → FTE 13:58 → TEL 03-23 00:46
DX: I26.99 Other pulmonary embolism without acute cor pulmonale (principal); R78.81 Bacteremia; I82.413 Acute embolism and thrombosis of femoral vein, bilateral; I82.433 Acute embolism and thrombosis of popliteal vein, bilateral; I10 Essential (primary) hypertension; M71.22 Synovial cyst of popliteal space [Baker], left knee; F17.200 Nicotine dependence, unspecified, uncomplicated; Z85.47 Personal history of malignant neoplasm of testis
CPT/HCPCS: 71275; 80048; 80053; 80202; 81001; 82565; 83735; 83880; 84100; 84484; 84520; 85025; 85610; 85730; 87040; 93005; 93306; 93970; 96372; 96374; 96375; 97161; 99285-25

== ENCOUNTER 2018-04-22 18:59 | Inpatient (IN) | payer BC ==
[2018-04-22] MEDS: IPRATROPIUM (NEB) 0.5 MG/2.5 ML AMP INH (19:15)
[2018-04-22] MEDS: LEVALBUTEROL (NEB) 1.25 MG/0.5 ML AMP INH (19:15)
[2018-04-22] MEDS: METHYLPREDNISOLONE 125 MG INJ IV (19:34)
[2018-04-22 19:35] LABS: ADD MAN DIFF? NO
[2018-04-22 19:41] LABS: ABNORMAL IP MESSAGE 1; BASOPHIL # 0.1 10^3/ul (0.0-0.1); BASOPHILS % 0.4 % (0.0-2.0); EOSINOPHILS # 2.6 10^3/ul (0.0-0.5); EOSINOPHILS % 18.8 % (0.0-7.0); HEMATOCRIT 42.8 % (42.0-52.0); HEMOGLOBIN 13.9 g/dl (14.0-18.0); LYMPHOCYTES # 1.9 10^3/ul (0.8-2.9); LYMPHOCYTES % 13.8 % (15.0-51.0); MEAN CORPUSCULAR HEMOGLOBIN 28.4 pg (29.0-33.0); MEAN CORPUSCULAR HGB CONC 32.5 g/dl (32.0-37.0); MEAN CORPUSCULAR VOLUME 87.3 fl (82.0-101.0); MONOCYTES % 7.3 % (0.0-11.0); NEUTROPHIL # 8.1 10^3/ul (1.6-7.5); NEUTROPHILS % 59.3 % (39.0-77.0); PLATELET COUNT 222 10^3/UL (140-415); POSITIVE DIFF @See below; RED CELL DISTRIBUTION WIDTH 14.8 % (11.5-14.5)
[2018-04-22 19:41] LABS: WHITE BLOOD COUNT 13.6 10^3/ul (4.8-10.8)
[2018-04-22] MEDS: SOD CHLORIDE 0.9% 1,000 ML IV (19:50)
[2018-04-22 19:57] LABS: LACTIC ACID 1.1 mmol/L (0.5-2.0)
[2018-04-22 19:58] LABS: ALANINE AMINOTRANSFERASE 13 IU/L (13-69); ALBUMIN 4.3 g/dl (3.3-4.9); ALKALINE PHOSPHATASE 82 IU/L (42-121); ANION GAP 15 (8-16); ASPARTATE AMINO TRANSFERASE 20 IU/L (15-46); BILIRUBIN,INDIRECT 0.2 mg/dl (0-1.1); BILIRUBIN,TOTAL 0.2 mg/dl (0.2-1.3); BLOOD UREA NITROGEN 9 mg/dl (7-20); CALCIUM 9.6 mg/dl (8.4-10.2); CARBON DIOXIDE 26 mmol/L (21-31); CHLORIDE 102 mmol/L (97-110); CREATININE 1.04 mg/dl (0.61-1.24); GLUCOSE 105 mg/dl (70-220); POTASSIUM 3.8 mmol/L (3.5-5.1); SODIUM 139 mmol/L (135-144); TOTAL PROTEIN 8.6 g/dl (6.1-8.1)
[2018-04-22 20:03] LABS: INR 1.05; PROTIME 13.8 Sec (11.9-14.9); PT RATIO 1.1
[2018-04-22 20:09] LABS: TROPONIN-I < 0.012 ng/ml (0.000-0.120)
[2018-04-22] MEDS ORDERED: ONDANSETRON 4 MG INJ IV ×2 (20:30→21:00)
[2018-04-22] MEDS ORDERED: ACETAMINOPHEN 325 MG TAB PO (20:30)
[2018-04-22] MEDS ORDERED: NACL 0.9% 3 ML SYG IV (21:00)
[2018-04-22] MEDS ORDERED: LEVALBUTEROL (NEB) 0.63 MG/3 ML AMP HHN (21:00)
[2018-04-22] MEDS ORDERED: IPRATROPIUM (NEB) 0.5 MG/2.5 ML AMP HHN (21:00)
[2018-04-22 21:43] LABS: LACTIC ACID 2.3 mmol/L (0.5-2.0)
[2018-04-22] MEDS: APIXABAN 5 MG TABLET PO (23:34)
[2018-04-22] MEDS: METOPROLOL 50 MG TAB PO (23:59)
[2018-04-23] MEDS: SOD CHLORIDE 0.9% 500 ML IV (01:35)
[2018-04-23 03:07] LABS: LACTIC ACID 1.7 mmol/L (0.5-2.0)
[2018-04-23 05:34] LABS: ADD MAN DIFF? NO
[2018-04-23 05:42] LABS: ABNORMAL IP MESSAGE 1; BASOPHILS % 0.5 % (0.0-2.0); EOSINOPHILS % 0.2 % (0.0-7.0); HEMATOCRIT 39.9 % (42.0-52.0); HEMOGLOBIN 12.8 g/dl (14.0-18.0); LYMPHOCYTES # 0.6 10^3/ul (0.8-2.9); LYMPHOCYTES % 13.5 % (15.0-51.0); MEAN CORPUSCULAR HEMOGLOBIN 28.1 pg (29.0-33.0); MEAN CORPUSCULAR HGB CONC 32.1 g/dl (32.0-37.0); MEAN CORPUSCULAR VOLUME 87.7 fl (82.0-101.0); MEAN PLATELET VOLUME 10.1 fl (7.4-10.4); MONOCYTE # 0.2 10^3/ul (0.3-0.9); MONOCYTES % 3.7 % (0.0-11.0); NEUTROPHIL # 3.5 10^3/ul (1.6-7.5); NEUTROPHILS % 81.2 % (39.0-77.0); PLATELET COUNT 205 10^3/UL (140-415); POSITIVE DIFF @See below; RED BLOOD COUNT 4.55 10^6/ul (4.70-6.10); RED CELL DISTRIBUTION WIDTH 15.1 % (11.5-14.5)
[2018-04-23 05:42] LABS: WHITE BLOOD COUNT 4.4 10^3/ul (4.8-10.8)
[2018-04-23 05:59] LABS: ALANINE AMINOTRANSFERASE 15 IU/L (13-69); ALBUMIN 3.6 g/dl (3.3-4.9); ALBUMIN/GLOBULIN RATIO 0.92; ALKALINE PHOSPHATASE 73 IU/L (42-121); ANION GAP 11 (8-16); ASPARTATE AMINO TRANSFERASE 15 IU/L (15-46); BILIRUBIN,INDIRECT 0.2 mg/dl (0-1.1); BILIRUBIN,TOTAL 0.2 mg/dl (0.2-1.3); BLOOD UREA NITROGEN 11 mg/dl (7-20); CALCIUM 9.4 mg/dl (8.4-10.2); CARBON DIOXIDE 27 mmol/L (21-31); CHLORIDE 108 mmol/L (97-110); CREATININE 0.98 mg/dl (0.61-1.24); GLUCOSE 137 mg/dl (70-220); MAGNESIUM 2.1 mg/dl (1.7-2.5); SODIUM 142 mmol/L (135-144); TOTAL PROTEIN 7.5 g/dl (6.1-8.1)
[2018-04-23 06:06] LABS: LACTIC ACID 1.1 mmol/L (0.5-2.0)
[2018-04-23] MEDS: APIXABAN 5 MG TABLET PO ×2 (08:53→21:17)
[2018-04-23] MEDS: METHYLPREDNISOLONE 125 MG INJ IV (08:53)
[2018-04-23] MEDS: METOPROLOL 50 MG TAB PO ×2 (08:54→21:16)
[2018-04-23] MEDS: FUROSEMIDE 40 MG TAB PO (08:54)
[2018-04-23] MEDS: LEVALBUTEROL (NEB) 0.63 MG/3 ML AMP HHN ×2 (13:47→20:26)
[2018-04-23] MEDS: FLUTICASONE/VILANTEROL 100-25 INH (16:10)
[2018-04-23] MEDS ORDERED: VANCOMYCIN IV PER PHARMACY XX (20:30)
[2018-04-23] MEDS: HYDROCODONE/APAP (5/325) TAB PO (21:15)
[2018-04-23] MEDS: DIPHENHYDRAMINE 25 MG CAP PO (21:22)
[2018-04-23] MEDS: VANCOMYCIN 2 GM in SOD CHLORIDE 0.9% 500 ML IVPB (23:13)
[2018-04-24] MEDS: LEVALBUTEROL (NEB) 0.63 MG/3 ML AMP HHN ×3 (08:19→20:52)
[2018-04-24] MEDS: METHYLPREDNISOLONE 125 MG INJ IV (08:46)
[2018-04-24] MEDS: APIXABAN 5 MG TABLET PO ×2 (08:46→20:41)
[2018-04-24] MEDS: ACETAMINOPHEN 325 MG TAB PO (08:46)
[2018-04-24] MEDS: FLUTICASONE/VILANTEROL 100-25 INH (08:47)
[2018-04-24] MEDS: METOPROLOL 50 MG TAB PO ×2 (08:47→20:41)
[2018-04-24] MEDS: FUROSEMIDE 40 MG TAB PO (08:47)
[2018-04-24] MEDS: VANCOMYCIN 1.25 GM in SOD CHLORIDE 0.9% 250 ML IVPB (10:28)
[2018-04-24] MEDS: PIPER-TAZO 3.375 GM IV (PMX) 100 ML IVPB ×2 (14:14→22:03)
[2018-04-24] MEDS: HYDROCODONE/APAP (5/325) TAB PO (20:40)
[2018-04-24] MEDS: DIPHENHYDRAMINE 25 MG CAP PO (22:53)
[2018-04-25] MEDS: PIPER-TAZO 3.375 GM IV (PMX) 100 ML IVPB ×3 (06:03→21:31)
[2018-04-25 06:14] LABS: ADD MAN DIFF? NO
[2018-04-25 06:30] LABS: WHITE BLOOD COUNT 12.2 10^3/ul (4.8-10.8)
[2018-04-25 06:30] LABS: HEMATOCRIT 39.7 % (42.0-52.0); MEAN CORPUSCULAR HEMOGLOBIN 29.2 pg (29.0-33.0); MEAN CORPUSCULAR HGB CONC 32.7 g/dl (32.0-37.0); MEAN CORPUSCULAR VOLUME 89.2 fl (82.0-101.0); RED BLOOD COUNT 4.45 10^6/ul (4.70-6.10); RED CELL DISTRIBUTION WIDTH 15.1 % (11.5-14.5)
[2018-04-25 06:31] LABS: BASOPHIL # 0.1 10^3/ul (0.0-0.1); BASOPHILS % 0.6 % (0.0-2.0); EOSINOPHILS # 0.1 10^3/ul (0.0-0.5); EOSINOPHILS % 0.7 % (0.0-7.0); LYMPHOCYTES # 2.4 10^3/ul (0.8-2.9); LYMPHOCYTES % 19.6 % (15.0-51.0); MEAN PLATELET VOLUME 10.1 fl (7.4-10.4); MONOCYTE # 1.1 10^3/ul (0.3-0.9); MONOCYTES % 8.8 % (0.0-11.0); NEUTROPHIL # 8.5 10^3/ul (1.6-7.5); NEUTROPHILS % 69.7 % (39.0-77.0); PLATELET COUNT 211 10^3/UL (140-415)
[2018-04-25 06:52] LABS: ANION GAP 15 (8-16); BLOOD UREA NITROGEN 20 mg/dl (7-20); CALCIUM 9.2 mg/dl (8.4-10.2); CARBON DIOXIDE 27 mmol/L (21-31); CHLORIDE 107 mmol/L (97-110); CREATININE 0.97 mg/dl (0.61-1.24); GLUCOSE 98 mg/dl (70-220); POTASSIUM 3.5 mmol/L (3.5-5.1); SODIUM 145 mmol/L (135-144)
[2018-04-25] MEDS: LEVALBUTEROL (NEB) 0.63 MG/3 ML AMP HHN ×3 (08:00→20:02)
[2018-04-25] MEDS: METHYLPREDNISOLONE 125 MG INJ IV (09:03)
[2018-04-25] MEDS: FLUTICASONE/VILANTEROL 100-25 INH (09:03)
[2018-04-25] MEDS: METOPROLOL 50 MG TAB PO ×2 (09:03→20:34)
[2018-04-25] MEDS: APIXABAN 5 MG TABLET PO ×2 (09:03→20:33)
[2018-04-25] MEDS: FUROSEMIDE 40 MG TAB PO (09:04)
[2018-04-26] MEDS: PIPER-TAZO 3.375 GM IV (PMX) 100 ML IVPB (05:43)
[2018-04-26] MEDS: APIXABAN 5 MG TABLET PO (07:54)
[2018-04-26] MEDS: FLUTICASONE/VILANTEROL 100-25 INH (07:54)
[2018-04-26] MEDS: METOPROLOL 50 MG TAB PO (07:55)
[2018-04-26] MEDS: METHYLPREDNISOLONE 125 MG INJ IV (07:55)
[2018-04-26] MEDS: FUROSEMIDE 40 MG TAB PO (07:55)
[2018-04-26] MEDS: LEVALBUTEROL (NEB) 0.63 MG/3 ML AMP HHN (08:38)
== END 2018-04-26 14:06 | disposition home or self-care (01) | DRG 202 ==
LOC: E/R 18:59 → 6WM 20:24
DX: J45.901 Unspecified asthma with (acute) exacerbation (principal); I26.99 Other pulmonary embolism without acute cor pulmonale; R65.10 Systemic inflammatory response syndrome (SIRS) of non-infectious origin without acute organ dysfunction; I82.411 Acute embolism and thrombosis of right femoral vein; I82.431 Acute embolism and thrombosis of right popliteal vein; I10 Essential (primary) hypertension; Z85.47 Personal history of malignant neoplasm of testis; F17.200 Nicotine dependence, unspecified, uncomplicated; Z79.02 Long term (current) use of antithrombotics/antiplatelets
CPT/HCPCS: 36415; 71045; 80048; 80053; 83605; 83735; 84484; 85025; 85610; 85730; 87040; 93005; 93970; 94640; 94644; 94664; 99285-25

== ENCOUNTER 2018-07-18 13:46 | Inpatient (IN) | payer BC ==
[2018-07-18] MEDS: MAGNESIUM SULFATE 2 GM/50 ML 50 ML IVPB (14:41)
[2018-07-18 15:25] LABS: HEMATOCRIT 52.4 % (42.0-52.0); HEMOGLOBIN 16.8 g/dl (14.0-18.0); MEAN CORPUSCULAR HGB CONC 32.1 g/dl (32.0-37.0); MEAN CORPUSCULAR VOLUME 90.5 fl (82.0-101.0); MEAN PLATELET VOLUME 9.7 fl (7.4-10.4); PLATELET COUNT 245 10^3/UL (140-415); RED BLOOD COUNT 5.79 10^6/ul (4.70-6.10); RED CELL DISTRIBUTION WIDTH 13.2 % (11.5-14.5)
[2018-07-18 15:25] LABS: WHITE BLOOD COUNT 11.9 10^3/ul (4.8-10.8)
[2018-07-18 15:33] LABS: ADD MAN DIFF? YES
[2018-07-18] MEDS: METHYLPREDNISOLONE 125 MG INJ IV (15:39)
[2018-07-18 15:42] LABS: ALANINE AMINOTRANSFERASE 10 IU/L (13-69); ALBUMIN 4.3 g/dl (3.3-4.9); ALBUMIN/GLOBULIN RATIO 1.04; ALKALINE PHOSPHATASE 86 IU/L (42-121); ANION GAP 9 (5-13); ASPARTATE AMINO TRANSFERASE 21 IU/L (15-46); BILIRUBIN,INDIRECT 0.3 mg/dl (0-1.1); BILIRUBIN,TOTAL 0.3 mg/dl (0.2-1.3); BLOOD UREA NITROGEN 13 mg/dl (7-20); CALCIUM 9.5 mg/dl (8.4-10.2); CARBON DIOXIDE 25 mmol/L (21-31); CHLORIDE 107 mmol/L (97-110); CREATININE 1.02 mg/dl (0.61-1.24); Estimated GFR > 60 mL/min (>60); GLUCOSE 91 mg/dl (70-220); POTASSIUM 4.4 mmol/L (3.5-5.1); SODIUM 141 mmol/L (135-144); TOTAL PROTEIN 8.4 g/dl (6.1-8.1)
[2018-07-18 15:45] LABS: INR 0.83; PROTIME 11.5 Sec (11.9-14.9); PT RATIO 0.9
[2018-07-18] MEDS: IPRATROPIUM (NEB) 0.5 MG/2.5 ML AMP INH (15:45)
[2018-07-18] MEDS: ALBUTEROL 0.5% (NEB) 2.5 MG/0.5 ML AMP INH (15:45)
[2018-07-18 15:46] LABS: PARTIAL THROMBOPLASTIN TIME 33.3 Sec (23.0-35.0)
[2018-07-18 15:56] LABS: TROPONIN-I < 0.012 ng/ml (0.000-0.120)
[2018-07-18 15:56] LABS: B-TYPE NATRIURETIC PEPTIDE 306 PG/ML (0-125)
[2018-07-18] MEDS: AZITHROMYCIN 500MG/250 ML IVPB IV (16:06)
[2018-07-18 16:10] LABS: BAND NEUTROPHILS #M 0.1 10^3/ul (0.0-0.6); BAND NEUTROPHILS % (M) 1 % (0-4); EOSINOPHILS % (M) 16 % (0-7); LYMPHOCYTES #M 1.9 10^3/ul (0.8-2.9); LYMPHOCYTES % (M) 16 % (15-51); MONOCYTE #M 0.9 10^3/ul (0.3-0.9); MONOCYTES % (M) 8 % (0-11); PLATELET ESTIMATE NORMAL; SEGMENTED NEUTROPHILS (M) % 59 % (39-77); SMUDGE%M 13 % (0-0)
[2018-07-18] MEDS ORDERED: LEVALBUTEROL (NEB) 1.25 MG/0.5 ML AMP HHN (18:30)
[2018-07-18] MEDS: LEVALBUTEROL (NEB) 1.25 MG/0.5 ML AMP HHN (19:10)
[2018-07-18] MEDS: IPRATROPIUM (NEB) 0.5 MG/2.5 ML AMP HHN (19:10)
[2018-07-18] MEDS: BUDESONIDE (NEB) 0.5MG/2ML AMP HHN (19:15)
[2018-07-18] MEDS: METOPROLOL 50 MG TAB PO (21:31)
[2018-07-18] MEDS: APIXABAN 5 MG TABLET PO (21:31)
[2018-07-18] MEDS: ACETAMINOPHEN 325 MG TAB PO (21:31)
[2018-07-19] MEDS: LEVALBUTEROL (NEB) 1.25 MG/0.5 ML AMP HHN ×4 (01:04→19:38)
[2018-07-19] MEDS: ACETAMINOPHEN 325 MG TAB PO (05:50)
[2018-07-19] MEDS: GUAIFENESIN 20 MG/ML 5ML CUP PO ×3 (05:51→20:05)
[2018-07-19] MEDS ORDERED: LEVALBUTEROL (HFA) 15 GM INHALER INH (07:30)
[2018-07-19 07:42] LABS: ADD MAN DIFF? NO
[2018-07-19 07:49] LABS: WHITE BLOOD COUNT 15.1 10^3/ul (4.8-10.8)
[2018-07-19 07:49] LABS: BASOPHILS % 0.2 % (0.0-2.0); HEMATOCRIT 49.7 % (42.0-52.0); HEMOGLOBIN 15.9 g/dl (14.0-18.0); LYMPHOCYTES # 1.4 10^3/ul (0.8-2.9); LYMPHOCYTES % 8.9 % (15.0-51.0); MEAN CORPUSCULAR HEMOGLOBIN 28.8 pg (29.0-33.0); MONOCYTE # 0.6 10^3/ul (0.3-0.9); NEUTROPHIL # 13.1 10^3/ul (1.6-7.5); NEUTROPHILS % 86.5 % (39.0-77.0); PLATELET COUNT 282 10^3/UL (140-415); RED BLOOD COUNT 5.52 10^6/ul (4.70-6.10); RED CELL DISTRIBUTION WIDTH 12.9 % (11.5-14.5)
[2018-07-19] MEDS: IPRATROPIUM (NEB) 0.5 MG/2.5 ML AMP HHN ×3 (08:00→19:38)
[2018-07-19 08:15] LABS: ALANINE AMINOTRANSFERASE 13 IU/L (13-69); ALBUMIN/GLOBULIN RATIO 1.05; ALKALINE PHOSPHATASE 77 IU/L (42-121); ANION GAP 11 (5-13); ASPARTATE AMINO TRANSFERASE 17 IU/L (15-46); BILIRUBIN,INDIRECT 0.3 mg/dl (0-1.1); BILIRUBIN,TOTAL 0.3 mg/dl (0.2-1.3); BLOOD UREA NITROGEN 15 mg/dl (7-20); CALCIUM 9.4 mg/dl (8.4-10.2); CARBON DIOXIDE 24 mmol/L (21-31); CHLORIDE 108 mmol/L (97-110); Estimated GFR > 60 mL/min (>60); GLUCOSE 124 mg/dl (70-220); POTASSIUM 4.4 mmol/L (3.5-5.1); SODIUM 143 mmol/L (135-144); TOTAL PROTEIN 7.8 g/dl (6.1-8.1)
[2018-07-19] MEDS: APIXABAN 5 MG TABLET PO ×2 (09:26→20:05)
[2018-07-19] MEDS: METHYLPREDNISOLONE 125 MG INJ IV (09:26)
[2018-07-19] MEDS: FLUTICASONE/VILANTEROL 100-25 INH (09:27)
[2018-07-19] MEDS: BUDESONIDE (NEB) 0.5MG/2ML AMP HHN (11:03)
[2018-07-19] MEDS ORDERED: FLUTICASONE/VILANTEROL 100-25 INH (12:00)
[2018-07-19] MEDS: IOHEXOL 100 ML (12:13)
[2018-07-19] MEDS: SOD CHLORIDE 0.9% 100 ML (12:13)
[2018-07-19] MEDS: HYDROCODONE/APAP (10/325) TAB PO ×2 (12:56→17:31)
[2018-07-19] MEDS: TIOTROPIUM 18 MCG CAPSULE INHA DEV INH (14:20)
[2018-07-19] MEDS: DOXAZOSIN 1 MG TAB PO (14:53)
[2018-07-19] MEDS: ALPRAZOLAM 1 MG TAB PO (20:05)
[2018-07-19] MEDS: MONTELUKAST 10 MG TAB PO (20:05)
[2018-07-19] MEDS: DOXAZOSIN 2 MG TAB PO (20:06)
[2018-07-19] MEDS: LABETALOL 200 MG TAB PO (23:29)
[2018-07-20] MEDS: LEVALBUTEROL (NEB) 1.25 MG/0.5 ML AMP HHN ×3 (01:11→14:27)
[2018-07-20] MEDS: IPRATROPIUM (NEB) 0.5 MG/2.5 ML AMP HHN (01:11)
[2018-07-20] MEDS: FLUTICASONE/VILANTEROL 100-25 INH (08:31)
[2018-07-20] MEDS: TIOTROPIUM 18 MCG CAPSULE INHA DEV INH (08:31)
[2018-07-20] MEDS: APIXABAN 5 MG TABLET PO (08:32)
[2018-07-20] MEDS: METHYLPREDNISOLONE 125 MG INJ IV (08:32)
[2018-07-20] MEDS: GUAIFENESIN 20 MG/ML 5ML CUP PO ×2 (11:10→16:12)
[2018-07-20] MEDS: NIFEdipine (XL) 30 MG TAB PO (11:10)
[2018-07-20] MEDS: HYDROCODONE/APAP (10/325) TAB PO (16:08)
== END 2018-07-20 18:00 | disposition home or self-care (01) | DRG 190 ==
LOC: E/R 13:46 → 2NE 18:22
DX: J44.1 Chronic obstructive pulmonary disease with (acute) exacerbation (principal); I26.99 Other pulmonary embolism without acute cor pulmonale; I16.1 Hypertensive emergency; I10 Essential (primary) hypertension; I16.0 Hypertensive urgency; D72.829 Elevated white blood cell count, unspecified; Z79.01 Long term (current) use of anticoagulants; Z87.891 Personal history of nicotine dependence; Z85.47 Personal history of malignant neoplasm of testis; Z86.718 Personal history of other venous thrombosis and embolism; T38.0X5A Adverse effect of glucocorticoids and synthetic analogues, initial encounter
CPT/HCPCS: 71275; 80053; 83880; 84484; 85025; 85610; 85730; 87400; 90686; 94640; 94644; 94664; 96374; 96375; 99285-25

== ENCOUNTER 2018-08-26 18:38 | Inpatient (IN) | payer BC ==
[2018-08-26] MEDS: IPRATROPIUM (NEB) 0.5 MG/2.5 ML AMP INH (20:06)
[2018-08-26] MEDS: ALBUTEROL 0.083% (NEB) 2.5 MG/3 ML AMP HHN (20:06)
[2018-08-26 20:11] LABS: ADD MAN DIFF? NO
[2018-08-26 20:19] LABS: WHITE BLOOD COUNT 14.1 10^3/ul (4.8-10.8)
[2018-08-26 20:20] LABS: BASOPHIL # 0.1 10^3/ul (0.0-0.1); BASOPHILS % 0.6 % (0.0-2.0); EOSINOPHILS # 1.8 10^3/ul (0.0-0.5); HEMOGLOBIN 17.6 g/dl (14.0-18.0); LYMPHOCYTES # 2.2 10^3/ul (0.8-2.9); LYMPHOCYTES % 15.9 % (15.0-51.0); MEAN CORPUSCULAR HEMOGLOBIN 28.6 pg (29.0-33.0); MEAN CORPUSCULAR HGB CONC 32.6 g/dl (32.0-37.0); MEAN CORPUSCULAR VOLUME 87.7 fl (82.0-101.0); MEAN PLATELET VOLUME 10.4 fl (7.4-10.4); MONOCYTE # 1.1 10^3/ul (0.3-0.9); MONOCYTES % 7.7 % (0.0-11.0); NEUTROPHIL # 8.8 10^3/ul (1.6-7.5); NEUTROPHILS % 62.3 % (39.0-77.0); PLATELET COUNT 292 10^3/UL (140-415); RED BLOOD COUNT 6.16 10^6/ul (4.70-6.10); RED CELL DISTRIBUTION WIDTH 12.7 % (11.5-14.5)
[2018-08-26] MEDS: METHYLPREDNISOLONE 125 MG INJ IV (20:22)
[2018-08-26] MEDS: SOD CHLORIDE 0.9% 1,000 ML IV (20:22)
[2018-08-26] MEDS: CEFTRIAXONE 1 GM/50 ML (PMX) 50 ML IVPB (20:23)
[2018-08-26] MEDS ORDERED: ACETAMINOPHEN 325 MG TAB PO (20:30)
[2018-08-26] MEDS ORDERED: ONDANSETRON 4 MG INJ IV (20:30)
[2018-08-26 20:37] LABS: ANION GAP 10 (5-13); BLOOD UREA NITROGEN 14 mg/dl (7-20); CALCIUM 9.9 mg/dl (8.4-10.2); CARBON DIOXIDE 28 mmol/L (21-31); CHLORIDE 104 mmol/L (97-110); CREATININE 1.08 mg/dl (0.61-1.24); Estimated GFR > 60 mL/min (>60); GLUCOSE 95 mg/dl (70-220); POTASSIUM 4.5 mmol/L (3.5-5.1); SODIUM 142 mmol/L (135-144)
[2018-08-26 20:49] LABS: TROPONIN-I < 0.012 ng/ml (0.000-0.120)
[2018-08-26] MEDS: AZITHROMYCIN 500MG/NS (PMX) 250 ML IV (21:22)
[2018-08-26] MEDS: LABETALOL HCL 20MG INJ IV (23:27)
[2018-08-27 00:04] LABS: LACTIC ACID 0.8 mmol/L (0.5-2.0)
[2018-08-27] MEDS ORDERED: ONDANSETRON 4 MG INJ IV (02:00)
[2018-08-27] MEDS ORDERED: ALPRAZOLAM 0.5 MG TAB PO (02:00)
[2018-08-27] MEDS ORDERED: NON-FORMULARY/PATIENT OWN MED (Albuterol/Ipratropium* (Combivent Respimat*) 1 PUFF) INHALATION (02:00)
[2018-08-27] MEDS ORDERED: NACL 0.9% 3 ML SYG IV (02:00)
[2018-08-27] MEDS: FUROSEMIDE 40 MG TAB PO (08:35)
[2018-08-27] MEDS: FLUTICASONE/VILANTEROL 100-25 INH (08:36)
[2018-08-27] MEDS: APIXABAN 5 MG TABLET PO ×2 (08:36→21:22)
[2018-08-27] MEDS: TIOTROPIUM 18 MCG CAPSULE INHA DEV INH (08:36)
[2018-08-27] MEDS: NIFEdipine (XL) 30 MG TAB PO ×2 (08:36→21:22)
[2018-08-27] MEDS: METHYLPREDNISOLONE 125 MG INJ IV ×2 (08:36→21:23)
[2018-08-27] MEDS: HYDROCODONE/APAP (10/325) TAB PO ×2 (08:46→17:19)
[2018-08-27 08:56] LABS: ADD MAN DIFF? NO
[2018-08-27 09:06] LABS: BASOPHILS % 0.4 % (0.0-2.0); HEMATOCRIT 50.4 % (42.0-52.0); HEMOGLOBIN 16.7 g/dl (14.0-18.0); LYMPHOCYTES # 0.9 10^3/ul (0.8-2.9); MEAN CORPUSCULAR HEMOGLOBIN 28.8 pg (29.0-33.0); MEAN CORPUSCULAR HGB CONC 33.1 g/dl (32.0-37.0); MEAN PLATELET VOLUME 10.8 fl (7.4-10.4); MONOCYTE # 0.2 10^3/ul (0.3-0.9); MONOCYTES % 2.3 % (0.0-11.0); NEUTROPHIL # 5.9 10^3/ul (1.6-7.5); NEUTROPHILS % 83.7 % (39.0-77.0); PLATELET COUNT 281 10^3/UL (140-415); RED BLOOD COUNT 5.79 10^6/ul (4.70-6.10); RED CELL DISTRIBUTION WIDTH 12.8 % (11.5-14.5)
[2018-08-27 09:06] LABS: WHITE BLOOD COUNT 7.1 10^3/ul (4.8-10.8)
[2018-08-27 09:25] LABS: ALANINE AMINOTRANSFERASE 20 IU/L (13-69); ALBUMIN 4.1 g/dl (3.3-4.9); ALKALINE PHOSPHATASE 81 IU/L (42-121); ANION GAP 12 (5-13); ASPARTATE AMINO TRANSFERASE 17 IU/L (15-46); BILIRUBIN,INDIRECT 0.4 mg/dl (0-1.1); BILIRUBIN,TOTAL 0.4 mg/dl (0.2-1.3); BLOOD UREA NITROGEN 17 mg/dl (7-20); CARBON DIOXIDE 25 mmol/L (21-31); CHLORIDE 105 mmol/L (97-110); CREATININE 1.08 mg/dl (0.61-1.24); Estimated GFR > 60 mL/min (>60); GLUCOSE 144 mg/dl (70-220); PHOSPHORUS 2.8 mg/dl (2.5-4.9); POTASSIUM 4.4 mmol/L (3.5-5.1); SODIUM 142 mmol/L (135-144); TOTAL PROTEIN 7.5 g/dl (6.1-8.1)
[2018-08-27] MEDS: BUDESONIDE (NEB) 0.5MG/2ML AMP HHN ×2 (13:03→21:06)
[2018-08-27] MEDS: ALBUTEROL/IPRATROPIUM (NEB) 3 ML AMP HHN ×2 (13:03→21:06)
[2018-08-27] MEDS: GUAIFENESIN 20 MG/ML 5ML CUP PO ×2 (14:45→18:33)
[2018-08-27] MEDS: ACETAMINOPHEN 325 MG TAB PO (15:23)
[2018-08-27 19:59] LABS: TROPONIN-I 0.016 ng/ml (0.000-0.120)
[2018-08-27] MEDS: DOXAZOSIN 2 MG TAB PO (21:22)
[2018-08-27] MEDS: MONTELUKAST 10 MG TAB PO (21:22)
[2018-08-27] MEDS: ALPRAZOLAM 0.5 MG TAB PO (21:29)
[2018-08-28] MEDS: GUAIFENESIN 20 MG/ML 5ML CUP PO ×2 (04:10→08:34)
[2018-08-28] MEDS: ALBUTEROL/IPRATROPIUM (NEB) 3 ML AMP HHN ×2 (04:21→07:29)
[2018-08-28 05:56] LABS: ADD MAN DIFF? NO
[2018-08-28 05:59] LABS: WHITE BLOOD COUNT 16.6 10^3/ul (4.8-10.8)
[2018-08-28 05:59] LABS: BASOPHILS % 0.1 % (0.0-2.0); HEMATOCRIT 51.1 % (42.0-52.0); HEMOGLOBIN 16.8 g/dl (14.0-18.0); LYMPHOCYTES # 1.2 10^3/ul (0.8-2.9); LYMPHOCYTES % 7.5 % (15.0-51.0); MEAN CORPUSCULAR HEMOGLOBIN 28.4 pg (29.0-33.0); MEAN CORPUSCULAR HGB CONC 32.9 g/dl (32.0-37.0); MEAN CORPUSCULAR VOLUME 86.3 fl (82.0-101.0); MEAN PLATELET VOLUME 10.6 fl (7.4-10.4); MONOCYTE # 0.5 10^3/ul (0.3-0.9); MONOCYTES % 3.1 % (0.0-11.0); NEUTROPHIL # 14.7 10^3/ul (1.6-7.5); NEUTROPHILS % 88.7 % (39.0-77.0); PLATELET COUNT 282 10^3/UL (140-415); RED BLOOD COUNT 5.92 10^6/ul (4.70-6.10); RED CELL DISTRIBUTION WIDTH 12.9 % (11.5-14.5)
[2018-08-28 06:29] LABS: ANION GAP 15 (5-13); BLOOD UREA NITROGEN 22 mg/dl (7-20); CALCIUM 9.9 mg/dl (8.4-10.2); CARBON DIOXIDE 25 mmol/L (21-31); CHLORIDE 102 mmol/L (97-110); CREATININE 1.08 mg/dl (0.61-1.24); Estimated GFR > 60 mL/min (>60); GLUCOSE 184 mg/dl (70-220); MAGNESIUM 2.2 mg/dl (1.7-2.5); POTASSIUM 4.2 mmol/L (3.5-5.1); SODIUM 142 mmol/L (135-144)
[2018-08-28] MEDS: BUDESONIDE (NEB) 0.5MG/2ML AMP HHN ×2 (07:39→20:04)
[2018-08-28] MEDS: NIFEdipine (XL) 30 MG TAB PO ×2 (08:28→20:28)
[2018-08-28] MEDS: FUROSEMIDE 40 MG TAB PO (08:28)
[2018-08-28] MEDS: METHYLPREDNISOLONE 125 MG INJ IV ×3 (08:28→18:49)
[2018-08-28] MEDS: APIXABAN 5 MG TABLET PO ×2 (08:28→20:29)
[2018-08-28] MEDS: SOD CHLORIDE 0.9% 1,000 ML IV (10:06)
[2018-08-28] MEDS: SOD CHLORIDE 0.9% 100 ML (11:09)
[2018-08-28] MEDS: IOHEXOL 100 ML (11:09)
[2018-08-28] MEDS ORDERED: LEVALBUTEROL (NEB) 1.25 MG/0.5 ML AMP HHN (12:00)
[2018-08-28] MEDS: IPRATROPIUM (NEB) 0.5 MG/2.5 ML AMP HHN ×2 (12:31→20:04)
[2018-08-28] MEDS: LEVALBUTEROL (NEB) 1.25 MG/0.5 ML AMP HHN ×2 (12:31→20:03)
[2018-08-28] MEDS: PROMETHAZINE/CODEINE 5ML CUP PO ×2 (13:18→18:51)
[2018-08-28] MEDS: PIPER-TAZO 3.375 GM IV (PMX) 100 ML IVPB ×2 (16:01→22:17)
[2018-08-28] MEDS: MONTELUKAST 10 MG TAB PO (20:27)
[2018-08-28] MEDS: HYDROCODONE/APAP (10/325) TAB PO (20:29)
[2018-08-28] MEDS: ALPRAZOLAM 0.5 MG TAB PO (20:35)
[2018-08-28] MEDS: DOXAZOSIN 2 MG TAB PO (22:17)
[2018-08-29] MEDS: METHYLPREDNISOLONE 125 MG INJ IV ×3 (00:53→21:24)
[2018-08-29] MEDS: LEVALBUTEROL (NEB) 1.25 MG/0.5 ML AMP HHN ×4 (01:28→19:58)
[2018-08-29] MEDS: IPRATROPIUM (NEB) 0.5 MG/2.5 ML AMP HHN ×4 (01:28→19:58)
[2018-08-29] MEDS: PIPER-TAZO 3.375 GM IV (PMX) 100 ML IVPB ×5 (04:31→23:35)
[2018-08-29 06:01] LABS: ADD MAN DIFF? NO
[2018-08-29] MEDS: SOD CHLORIDE 0.9% 1,000 ML IV (06:07)
[2018-08-29 06:39] LABS: ANION GAP 8 (5-13); BLOOD UREA NITROGEN 25 mg/dl (7-20); CALCIUM 9.7 mg/dl (8.4-10.2); CARBON DIOXIDE 28 mmol/L (21-31); CHLORIDE 106 mmol/L (97-110); CREATININE 1.04 mg/dl (0.61-1.24); Estimated GFR > 60 mL/min (>60); GLUCOSE 186 mg/dl (70-220); MAGNESIUM 2.2 mg/dl (1.7-2.5); PHOSPHORUS 3.7 mg/dl (2.5-4.9); POTASSIUM 3.7 mmol/L (3.5-5.1); SODIUM 142 mmol/L (135-144)
[2018-08-29 06:59] LABS: WHITE BLOOD COUNT 15.5 10^3/ul (4.8-10.8)
[2018-08-29 06:59] LABS: BASOPHILS % 0.1 % (0.0-2.0); HEMATOCRIT 50.2 % (42.0-52.0); HEMOGLOBIN 16.2 g/dl (14.0-18.0); LYMPHOCYTES # 0.9 10^3/ul (0.8-2.9); LYMPHOCYTES % 5.5 % (15.0-51.0); MEAN CORPUSCULAR HEMOGLOBIN 28.3 pg (29.0-33.0); MEAN CORPUSCULAR HGB CONC 32.3 g/dl (32.0-37.0); MEAN CORPUSCULAR VOLUME 87.8 fl (82.0-101.0); MEAN PLATELET VOLUME 10.8 fl (7.4-10.4); MONOCYTE # 0.4 10^3/ul (0.3-0.9); MONOCYTES % 2.5 % (0.0-11.0); NEUTROPHIL # 14.1 10^3/ul (1.6-7.5); NEUTROPHILS % 91.3 % (39.0-77.0); PLATELET COUNT 253 10^3/UL (140-415); RED BLOOD COUNT 5.72 10^6/ul (4.70-6.10); RED CELL DISTRIBUTION WIDTH 12.9 % (11.5-14.5)
[2018-08-29] MEDS: APIXABAN 5 MG TABLET PO ×2 (08:16→21:23)
[2018-08-29] MEDS: NIFEdipine (XL) 30 MG TAB PO ×2 (08:16→21:24)
[2018-08-29] MEDS: BUDESONIDE (NEB) 0.5MG/2ML AMP HHN ×2 (09:24→19:57)
[2018-08-29] MEDS: PROMETHAZINE/CODEINE 5ML CUP PO ×2 (12:03→21:24)
[2018-08-29] MEDS: MONTELUKAST 10 MG TAB PO (21:23)
[2018-08-29] MEDS: DOXAZOSIN 2 MG TAB PO (22:12)
[2018-08-29] MEDS: ALPRAZOLAM 0.5 MG TAB PO (22:13)
[2018-08-30] MEDS: LEVALBUTEROL (NEB) 1.25 MG/0.5 ML AMP HHN ×4 (01:18→20:00)
[2018-08-30] MEDS: SOD CHLORIDE 0.9% 1,000 ML IV (04:00)
[2018-08-30] MEDS: PIPER-TAZO 3.375 GM IV (PMX) 100 ML IVPB (05:35)
[2018-08-30 06:24] LABS: ADD MAN DIFF? NO
[2018-08-30 06:35] LABS: WHITE BLOOD COUNT 12.5 10^3/ul (4.8-10.8)
[2018-08-30 06:35] LABS: BASOPHILS % 0.2 % (0.0-2.0); HEMATOCRIT 48.9 % (42.0-52.0); LYMPHOCYTES # 0.9 10^3/ul (0.8-2.9); LYMPHOCYTES % 7.4 % (15.0-51.0); MEAN CORPUSCULAR HEMOGLOBIN 28.6 pg (29.0-33.0); MEAN CORPUSCULAR HGB CONC 32.7 g/dl (32.0-37.0); MEAN CORPUSCULAR VOLUME 87.5 fl (82.0-101.0); MEAN PLATELET VOLUME 10.5 fl (7.4-10.4); MONOCYTE # 0.5 10^3/ul (0.3-0.9); MONOCYTES % 4.2 % (0.0-11.0); NEUTROPHIL # 10.9 10^3/ul (1.6-7.5); NEUTROPHILS % 87.3 % (39.0-77.0); PLATELET COUNT 256 10^3/UL (140-415); RED BLOOD COUNT 5.59 10^6/ul (4.70-6.10); RED CELL DISTRIBUTION WIDTH 13.2 % (11.5-14.5)
[2018-08-30 07:07] LABS: ANION GAP 12 (5-13); BLOOD UREA NITROGEN 23 mg/dl (7-20); CALCIUM 9.5 mg/dl (8.4-10.2); CARBON DIOXIDE 27 mmol/L (21-31); CHLORIDE 103 mmol/L (97-110); CREATININE 0.91 mg/dl (0.61-1.24); Estimated GFR > 60 mL/min (>60); GLUCOSE 137 mg/dl (70-220); MAGNESIUM 2.3 mg/dl (1.7-2.5); PHOSPHORUS 4.1 mg/dl (2.5-4.9); SODIUM 142 mmol/L (135-144)
[2018-08-30] MEDS: IPRATROPIUM (NEB) 0.5 MG/2.5 ML AMP HHN ×3 (07:48→19:59)
[2018-08-30] MEDS: METHYLPREDNISOLONE 125 MG INJ IV (08:12)
[2018-08-30] MEDS: NIFEdipine (XL) 30 MG TAB PO ×2 (08:12→12:39)
[2018-08-30] MEDS: APIXABAN 5 MG TABLET PO ×2 (08:12→20:30)
[2018-08-30] MEDS: BUDESONIDE (NEB) 0.5MG/2ML AMP HHN ×2 (09:58→20:00)
[2018-08-30] MEDS: PROMETHAZINE/CODEINE 5ML CUP PO ×3 (10:15→19:14)
[2018-08-30] MEDS: LEVOFLOXACIN 500 MG TAB PO (12:08)
[2018-08-30] MEDS: HYDROCODONE/APAP (10/325) TAB PO (20:29)
[2018-08-30] MEDS: MONTELUKAST 10 MG TAB PO (20:30)
[2018-08-30] MEDS: DOXAZOSIN 2 MG TAB PO (20:33)
[2018-08-30] MEDS: ALPRAZOLAM 0.5 MG TAB PO (22:18)
[2018-08-31] MEDS: LEVALBUTEROL (NEB) 1.25 MG/0.5 ML AMP HHN ×4 (01:44→19:34)
[2018-08-31] MEDS: IPRATROPIUM (NEB) 0.5 MG/2.5 ML AMP HHN ×4 (01:44→19:33)
[2018-08-31] MEDS: LEVOFLOXACIN 500 MG TAB PO (05:36)
[2018-08-31 06:44] LABS: ADD MAN DIFF? NO
[2018-08-31 06:50] LABS: WHITE BLOOD COUNT 12.9 10^3/ul (4.8-10.8)
[2018-08-31 06:50] LABS: BASOPHIL # 0.1 10^3/ul (0.0-0.1); BASOPHILS % 0.4 % (0.0-2.0); EOSINOPHILS # 0.1 10^3/ul (0.0-0.5); EOSINOPHILS % 0.5 % (0.0-7.0); HEMATOCRIT 51.7 % (42.0-52.0); HEMOGLOBIN 16.6 g/dl (14.0-18.0); LYMPHOCYTES # 2.6 10^3/ul (0.8-2.9); LYMPHOCYTES % 20.5 % (15.0-51.0); MEAN CORPUSCULAR HEMOGLOBIN 27.9 pg (29.0-33.0); MEAN CORPUSCULAR HGB CONC 32.1 g/dl (32.0-37.0); MEAN CORPUSCULAR VOLUME 86.9 fl (82.0-101.0); MEAN PLATELET VOLUME 10.4 fl (7.4-10.4); MONOCYTE # 1.3 10^3/ul (0.3-0.9); MONOCYTES % 10.3 % (0.0-11.0); NEUTROPHIL # 8.5 10^3/ul (1.6-7.5); NEUTROPHILS % 66.4 % (39.0-77.0); PLATELET COUNT 250 10^3/UL (140-415); RED BLOOD COUNT 5.95 10^6/ul (4.70-6.10)
[2018-08-31 07:11] LABS: ANION GAP 8 (5-13); BLOOD UREA NITROGEN 23 mg/dl (7-20); CALCIUM 9.3 mg/dl (8.4-10.2); CARBON DIOXIDE 28 mmol/L (21-31); CHLORIDE 103 mmol/L (97-110); CREATININE 0.91 mg/dl (0.61-1.24); Estimated GFR > 60 mL/min (>60); GLUCOSE 110 mg/dl (70-220); MAGNESIUM 2.3 mg/dl (1.7-2.5); PHOSPHORUS 4.1 mg/dl (2.5-4.9); POTASSIUM 3.6 mmol/L (3.5-5.1); SODIUM 139 mmol/L (135-144)
[2018-08-31] MEDS: NIFEdipine (XL) 90 MG TAB PO (08:26)
[2018-08-31] MEDS: predniSONE 20 MG TAB PO (08:26)
[2018-08-31] MEDS: APIXABAN 5 MG TABLET PO ×2 (08:26→20:10)
[2018-08-31] MEDS: BUDESONIDE (NEB) 0.5MG/2ML AMP HHN ×3 (09:00→19:34)
[2018-08-31] MEDS: DOXAZOSIN 2 MG TAB PO (20:11)
[2018-08-31] MEDS: MONTELUKAST 10 MG TAB PO (20:11)
[2018-08-31] MEDS: PROMETHAZINE/CODEINE 5ML CUP PO (20:11)
[2018-08-31] MEDS: ALPRAZOLAM 0.5 MG TAB PO (20:15)
[2018-08-31] MEDS: SOD CHLORIDE 0.9% 500 ML IV (23:53)
[2018-09-01] MEDS: LEVALBUTEROL (NEB) 1.25 MG/0.5 ML AMP HHN ×3 (01:34→13:35)
[2018-09-01] MEDS: LEVOFLOXACIN 500 MG TAB PO (05:57)
[2018-09-01 06:02] LABS: ADD MAN DIFF? NO
[2018-09-01 06:15] LABS: WHITE BLOOD COUNT 13.5 10^3/ul (4.8-10.8)
[2018-09-01 06:15] LABS: ABNORMAL IP MESSAGE 1; BASOPHILS % 0.1 % (0.0-2.0); EOSINOPHILS # 0.2 10^3/ul (0.0-0.5); EOSINOPHILS % 1.7 % (0.0-7.0); HEMATOCRIT 52.7 % (42.0-52.0); HEMOGLOBIN 17.1 g/dl (14.0-18.0); LYMPHOCYTES # 3.3 10^3/ul (0.8-2.9); LYMPHOCYTES % 24.4 % (15.0-51.0); MEAN CORPUSCULAR HEMOGLOBIN 28.4 pg (29.0-33.0); MEAN CORPUSCULAR HGB CONC 32.4 g/dl (32.0-37.0); MEAN CORPUSCULAR VOLUME 87.4 fl (82.0-101.0); MEAN PLATELET VOLUME 10.1 fl (7.4-10.4); MONOCYTE # 1.4 10^3/ul (0.3-0.9); MONOCYTES % 10.7 % (0.0-11.0); PLATELET COUNT 262 10^3/UL (140-415); POSITIVE DIFF @See below; RED BLOOD COUNT 6.03 10^6/ul (4.70-6.10); RED CELL DISTRIBUTION WIDTH 13.2 % (11.5-14.5)
[2018-09-01] MEDS: BUDESONIDE (NEB) 0.5MG/2ML AMP HHN (08:10)
[2018-09-01] MEDS: IPRATROPIUM (NEB) 0.5 MG/2.5 ML AMP HHN ×3 (08:10→20:16)
[2018-09-01] MEDS: NIFEdipine (XL) 90 MG TAB PO (08:29)
[2018-09-01] MEDS: APIXABAN 5 MG TABLET PO ×2 (08:29→20:05)
[2018-09-01] MEDS: predniSONE 20 MG TAB PO (08:30)
[2018-09-01] MEDS: PROMETHAZINE/CODEINE 5ML CUP PO ×3 (12:51→23:58)
[2018-09-01] MEDS: MONTELUKAST 10 MG TAB PO (20:05)
[2018-09-01] MEDS: DOXAZOSIN 2 MG TAB PO (20:08)
[2018-09-01] MEDS: ALPRAZOLAM 0.5 MG TAB PO (20:35)
[2018-09-02] MEDS: LEVOFLOXACIN 500 MG TAB PO (05:08)
[2018-09-02] MEDS: FLUTICASONE/VILANTEROL 100-25 INH (08:13)
[2018-09-02] MEDS: APIXABAN 5 MG TABLET PO (08:14)
[2018-09-02] MEDS: predniSONE 20 MG TAB PO (08:14)
[2018-09-02] MEDS: NIFEdipine (XL) 90 MG TAB PO (08:14)
== END 2018-09-02 14:40 | disposition home or self-care (01) | DRG 190 ==
LOC: PP2 20:18 → TEL 08-28 11:20 → E/R 18:38
PROC: 3E0F7GC Introduction of Other Therapeutic Substance into Respiratory Tract, Via Natural or Artificial Opening (ICD-10-PCS; principal; 2018-08-26)
DX: J44.1 Chronic obstructive pulmonary disease with (acute) exacerbation (principal); J18.9 Pneumonia, unspecified organism; M25.511 Pain in right shoulder; F41.9 Anxiety disorder, unspecified; N28.1 Cyst of kidney, acquired; I10 Essential (primary) hypertension
CPT/HCPCS: 36415; 70450; 71045; 71275; 72196; 73200; 74182; 80048; 80053; 83605; 83735; 84100; 84484; 85025; 87040; 93005; 94640; 94664; 99285-25

== ENCOUNTER 2019-03-29 20:00 | Emergency (ER) | payer BC ==
[2019-03-29] MEDS: IPRATROPIUM (NEB) 0.5 MG/2.5 ML AMP HHN (20:57)
[2019-03-29] MEDS: ALBUTEROL 0.083% (NEB) 2.5 MG/3 ML AMP HHN (20:57)
[2019-03-29] MEDS: predniSONE 20 MG TAB PO (21:57)
== END 2019-03-29 22:58 | disposition home or self-care (01) ==
LOC: E/R 20:00
DX: J44.1 Chronic obstructive pulmonary disease with (acute) exacerbation (principal); Z79.01 Long term (current) use of anticoagulants
CPT/HCPCS: 94664; 99283-25

== ENCOUNTER 2019-04-30 09:40 | Day surgery (SDC) | payer BC ==
[2019-04-30] MEDS ORDERED: SOD CHLORIDE 0.9% 1,000 ML IV (10:38)
[2019-04-30 11:32] LABS: INR 0.96; PROTIME 12.9 Sec (11.9-14.9)
[2019-04-30 11:33] LABS: PARTIAL THROMBOPLASTIN TIME 32.6 Sec (23.0-35.0)
[2019-04-30] MEDS ORDERED: PROPOFOL 20 ML (12:14)
[2019-04-30] MEDS ORDERED: FENTAnyl 50 MCG/ML VIAL (12:14)
[2019-04-30] MEDS ORDERED: MIDAZOLAM 1 MG/ML 2 ML INJ (12:14)
[2019-04-30] MEDS ORDERED: LABETALOL HCL 20MG INJ (12:33)
[2019-04-30] MEDS: LIDOCAINE 1% (MDV) 20 ML INJ (13:04)
[2019-04-30] MEDS: ALBUTEROL 0.083% (NEB) 2.5 MG/3 ML AMP HHN (13:18)
[2019-04-30] MEDS ORDERED: hydrALAzine 20 MG INJ IV (13:30)
[2019-04-30] MEDS ORDERED: LEVALBUTEROL (NEB) 0.63 MG/3 ML AMP HHN (13:30)
[2019-04-30] MEDS ORDERED: LABETALOL HCL 20MG INJ IV (13:30)
== END 2019-04-30 15:13 | disposition home or self-care (01) ==
LOC: SDS 09:40
DX: J98.4 Other disorders of lung (principal); C34.90 Malignant neoplasm of unspecified part of unspecified bronchus or lung; J45.909 Unspecified asthma, uncomplicated; I10 Essential (primary) hypertension; R06.02 Shortness of breath; Z86.718 Personal history of other venous thrombosis and embolism; Z79.84 Long term (current) use of oral hypoglycemic drugs; Z87.891 Personal history of nicotine dependence
CPT/HCPCS: 10009; 77012; 85610; 85730